=== PATIENT | female | born 1940 | race Caucasian/White ===

== ENCOUNTER 2019-02-21 23:27 | Inpatient (IN) ==
[2019-02-22 01:43] LABS: BASO# 0.01 X1000 (0.0-0.2); BASO% 0.1 % (0.0-0.8); HEMATOCRIT 36.5 % (37.0-47.0); HEMOGLOBIN 12.1 g/dL (12.0-16.0); IMM GRAN# 0.02 X1000 (0.0-0.04); IMM GRAN% 0.2 % (0.0-0.5); LYMPH# 0.71 X1000 (1.2-3.4); MCH 27.8 PG (27-31); MCHC 33.2 g/dL (33-37); MCV 83.7 FL (81-99); MONO# 1.18 X1000 (0.11-0.59); MONO% 11.6 % (1.7-9.3); MPV 10.4 FL (7.4-10.4); NEUT# 8.29 X1000 (1.4-6.5); NEUT% 81.1 % (42.2-75.2); PLT 221 X1000 (130-400); RBC 4.36 XMIL (4.2-5.4); RDW 13.7 % (11.5-14.5); WBC 10.21 X1000 (4.8-10.8)
[2019-02-22 02:14] LABS: AGAP 13; BUN 8 mg/dL (8-22); CALCIUM 8.3 mg/dL (8.8-10.2); CHLORIDE 96 mmol/L (98-107); COSMO 280; CREATININE 0.6 mg/dL (0.5-0.9); ESTIMATED GFR > 60; GLUCOSE 178 mg/dL (70-104); POTASSIUM 3.1 mmol/L (3.5-5.1); SODIUM 139 mmol/L (136-145); TCO2 30 mmol/L (25-35)
[2019-02-22 03:15] LABS: URINE SOURCE CLEAN CATCH
[2019-02-22 03:18] LABS: BILIRUBIN URINE NEGATIVE (NEGATIVE); BLOOD URINE SMALL (NEGATIVE); COLOR STRAW; GLUCOSE URINE 1000 mg/dL (NEGATIVE); KETONE URINE 20 mg/dL (NEGATIVE); LEUKOCYTES URINE SMALL (NEGATIVE); NITRITE URINE NEGATIVE (NEGATIVE); PH URINE 7.5; PROTEIN URINE 100 mg/dL (NEGATIVE); SP GRAVITY URINE < 1.001; TURBIDITY URINE HAZY (CLEAR); UR EPITHELIAL CELLS <10 /HPF (<10); URINE BACTERIA NEGATIVE /HPF; URINE RBC <10 /HPF (<10); URINE WBC TNTC /HPF (<10); UROBILINOGEN URINE NORMAL (NORMAL)
[2019-02-22] MEDS ORDERED: ROCEPHIN 1 GM in NS 50 ML IV ONE (03:25)
--- NOTE | 2019-02-22 04:12 | PROVIDER DOCUMENTATION ---
This chart was entered by Matilda Calix Scribe, acting as scribe for Fina Wood MD. HPI-Syncope/Dizziness - General Chief Complaint: Syncope Stated Complaint: ams, syncope Time Seen by Provider: 02/22/19 00:05 Source: patient, family Allergies/Adverse Reactions: Patient Allergies Allergy/AdvReac Type Severity Reaction Status Date / Time No Known Allergies Allergy Verified 02/22/19 00:49 Home Medications: Home Medication List Medication Instructions Recorded Confirmed Last Taken Type Insulin Novolog 70/30 [Novolog Mix 15 units SQ QHS 11/28/18 01/23/19 11/27/18 History 70/30] Insulin Novolog 70/30 [Novolog Mix 37 units SQ QAM 11/28/18 01/23/19 11/27/18 History 70/30] ATORVAstatin [Lipitor] 1 tab PO QHS 01/23/19 01/23/19 Unknown History Donepezil [Aricept] 1 tab PO QAM 01/23/19 01/23/19 Unknown History Sulfamethoxazole/Trimethoprim 1 ea PO BID #10 tab 01/23/19 Unknown Rx [Bactrim Ds Tablet] - History of Present Illness-Syncope/Dizzy Nature of Presenting Problem: 78 yof presents w/family at bedside w/cc syncope. family found pt slumped over on bathroom toilet. pt states she was weak and couldn't get up and felt dizzy. family states pt was "out of it" but "getting better" in er. pt denies any pain in er. no chest pain, headache, or recent illness Onset/Duration: reports: just prior to arrival Timing: reports: improving Position/Activity at time of episode: reports: sitting Symptoms prior to episode: reports: other (weak) Recently Seen Here or By Another Healthcare Provider: No Review of Systems - Adult - REVIEW OF SYSTEMS - ADULT Constitutional: reports: see HPI, other (weakness). denies: chills, fever, fatique Eyes: reports: no symptoms reported Ears, Nose, Mouth & Throat: reports: no symptoms reported Cardiovascular: reports: no symptoms reported. denies: chest pain, poor circulation, PND Respiratory: reports: no symptoms reported. denies: hemoptysis, shortness of breath, wheezing Gastrointestinal: reports: no symptoms reported. denies: abdominal pain, diarrhea, nausea, vomiting Genitourinary: reports: no symptoms reported Musculoskeletal: reports: no symptoms reported. denies: frequent leg cramps, joint pain, joint swelling Integumentary: reports: no symptoms reported Neurological: reports: see HPI, syncope. denies: dizziness/vertigo, headache/migraines, loss of balance, numbness, paresthesia, seizure Psychiatric: reports: no symptoms reported Endocrine: reports: no symptoms reported Hematologic/Lymphatic: reports: no symptoms reported Allergic/Immunologic: reports: no symptoms reported All Other Systems: Reviewed and Negative Past History - Adult - PAST MEDICAL HISTORY-ADULT Review of Records: reports: Old Records Reviewed, Nursing Assessment Review, Medications Reviewed, Social history reviewed & non-contributory. Major Childhood Illnesses: reports: denies history Cardiovascular: reports: HTN Respiratory: reports: denies history Gastrointestinal: reports: denies history Obstetrical/Gynecological: reports: denies history Genitourinary: reports: denies history Musculoskeletal: reports: denies history Neurological: reports: denies history Endocrine/Immune: reports: Diabetes Other Conditions: reports: denies history - PRIOR SURGERIES/PROCEDURES Surgical/Procedure History: reports: none - IMMUNIZATION STATUS Childhood Immunizations: See Nurse Assessment Flu Vaccine: See Nurse Assessment - FAMILY HISTORY Family History: reviewed, not pertinent - SOCIAL HISTORY Smoking: non-smoker Substance Use: none/never Physical Exam-General - PHYSICAL EXAM-ADULT Initial Vital Signs Reviewed: Yes - CONSTITUTIONAL General Appearance: appears well, alert, no apparent distress - EYES Eyes: PERRL/EOMI, pink conjunctivae - HEAD, EARS, NOSE, MOUTH & THROAT HENMT: normocephalic/atraumatic, moist mucous membranes, normal ENT inspection - NECK Neck: non-tender, full range of motion, supple, normal inspection - RESPIRATORY Respiratory: chest non-tender, lungs clear, normal breath sounds - CARDIOVASCULAR Cardiovascular: normal peripheral pulses, regular rate, rhythm - GASTROINTESTINAL (ABDOMEN) Abdominal Exam: normal bowel sounds, non tender, soft - LYMPHATIC Lymphatic: no adenopathy - MUSCULOSKELETAL Back Exam: normal inspection, no CVA tenderness, no vertebral tenderness Extremity: normal range of motion, non-tender, normal inspection - SKIN Integumentary: normal color, normal turgor, warm/dry - NEUROLOGIC Neurologic: grossly normal, no motor/sensory deficits - PSYCHIATRIC Psych/Mental Status: normal mood/affect, normal thought content, normal thought process, oriented x 3 Progress - PLAN OF CARE/RESULTS Progress/Plan/Lab Results: Vital Signs - 8 hr 02/21/19 23:54 Temperature 98.6 F Pulse Rate 96 H Respiratory Rate 20 Blood Pressure 222/122 O2 Sat by Pulse Oximetry 96 Laboratory Results - last 24 hr 02/22/19 02/22/19 02/22/19 01:07 01:07 01:07 WBC 10.21 RBC 4.36 Hgb 12.1 Hct 36.5 L MCV 83.7 MCH 27.8 MCHC 33.2 RDW Std Deviation 13.7 Plt Count 221 MPV 10.4 Immature Gran % (Auto) 0.2 Neut % (Auto) 81.1 H Lymph % (Auto) 7.0 L Howard % (Auto) 11.6 H Eos % (Auto) 0.0 Baso % (Auto) 0.1 Immature Gran # (Auto) 0.02 Neut # (Auto) 8.29 H Lymph # (Auto) 0.71 L Howard # (Auto) 1.18 H Eos # (Auto) 0.00 Baso # (Auto) 0.01 Sodium 139 Potassium 3.1 L Chloride 96 L Carbon Dioxide 30 Anion Gap 13 BUN 8 Creatinine 0.6 Estimated GFR/1.73 m2 > 60 BUN/Creatinine Ratio 13 Glucose 178 H Calculated Osmolality 280 Calcium 8.3 L Troponin T < 0.010 Urine Source Urine Color Urine Turbidity Urine pH Ur Specific Metz Urine Protein Ur Glucose (Stick) Ur Ketones (Stick) Urine Blood Urine Nitrite Urine Bilirubin Urobilinogen Dipstick Urine Leukocytes Urine WBC (Auto) Urine RBC (Auto) U Epithel Cells (Auto) Urine Bacteria (Auto) 02/22/19 03:04 WBC RBC Hgb Hct MCV MCH MCHC RDW Std Deviation Plt Count MPV Immature Gran % (Auto) Neut % (Auto) Lymph % (Auto) Howard % (Auto) Eos % (Auto) Baso % (Auto) Immature Gran # (Auto) Neut # (Auto) Lymph # (Auto) Howard # (Auto) Eos # (Auto) Baso # (Auto) Sodium Potassium Chloride Carbon Dioxide Anion Gap BUN Creatinine Estimated GFR/1.73 m2 BUN/Creatinine Ratio Glucose Calculated Osmolality Calcium Troponin T Urine Source CLEAN CATCH Urine Color STRAW Urine Turbidity HAZY Urine pH 7.5 Ur Specific Metz < 1.001 Urine Protein 100 A Ur Glucose (Stick) 1000 A Ur Ketones (Stick) 20 A Urine Blood SMALL A Urine Nitrite NEGATIVE Urine Bilirubin NEGATIVE Urobilinogen Dipstick NORMAL Urine Leukocytes SMALL A Urine WBC (Auto) TNTC A Urine RBC (Auto) <10 U Epithel Cells (Auto) <10 Urine Bacteria (Auto) NEGATIVE Orders Category Date Time Status Nursing- Obtain EKG ONCE Care 02/22/19 00:11 Active CHEST-1 VIEW [RAD] Stat Exams 02/22/19 00:[address] HEAD W/O CONTRAST [CT] Stat Exams 02/22/19 00:11 Taken BASIC METABOLIC PANEL [CHEM] Stat Lab 02/22/19 01:07 Completed CBC WITH ELECTRONIC DIFF [HEME] Stat Lab 02/22/19 01:07 Completed TROPONIN T Stat Lab 02/22/19 01:07 Completed UA Reflex [URINALYSIS W/POSS RFLX CULT] [URINALYSIS] Lab 02/22/19 03:04 Completed Stat EKG [EKG] Stat Ther 02/22/19 00:11 Ordered syncope will further evaluate for causes including but not limited to arrythmia, acs, cva, tia, electrolyte imbalance, dehydration, uti pna, other infectious process Result Diagrams: 02/22/19 01:07 02/22/19 01:07 - REASSESSMENT Reassessment #1 Status: improving (UTI, labs and studies otherwise unremarkable. unclear cause of syncope. Treated wtih ceftriaxone and will admit for further evaluation and treatment. Discussed case wtih Dr. Garcia, Hospitalist, who will see and admit pt.) - EKG 1 Time of EKG reading by physician:: 01:40 EKG Read and Signed by:: Fina Wood EKG Interpretation (*Must complete 3 of following elements*): Abnormal Rate: 96 Rhythm: Sinus rhythm w/premature supraventricular complexes [place]: normal CO Interval: normal ST Wave: non-specific ST changes (nonspecific st and t wave abnormality) - XRAY 1 XRAY Study: Chest Impression: Normal - CT/MRI 1 CT Study: Head (Impression: No acute intracranial hemorrhage or process. 2. Age related cerebral volume loss 3. Bilateral white matter disease, likely ischemic microvascular in nature.) Impression: Normal Departure - Departure Date of Disposition Decision: 02/22/19 Time of Disposition Decision: 03:26 DIAGNOSIS: Syncope Qualifiers: Syncope type: unspecified Qualified Code(s): R55 - Syncope and collapse UTI (urinary tract infection) Qualifiers: Urinary tract infection type: site unspecified Hematuria presence: with hematuria Qualified Code(s): N39.0 - Urinary tract infection, site not specified; R31.9 - Hematuria, unspecified Disposition: ADMITTED INPATIENT 09 Certified Medical Emergency: Emergent Condition: Good Referrals and Follow-Ups: Prieto Rizzo MD [Primary Care Provider] - - Critical Care Note This patient required my direct & personal management of CC.: No Attestation - Physician/ GEOVANI Attestation Patient care was provided by Advanced Practice Provider:: No The physician spent face to face time with patient:: Yes Advanced Practice Provider documentation review:: Supervising physician onsite and consulted in the evaluation and care of this patient. The physician did have a face to face encounter with the patient. This chart was documented by the indicated scribe, (Matilda Calix Scribe) and accurately reflects the services I performed and decisions made by me, Fina Wood MD, as attested by the provider's signature.
[2019-02-22] MEDS ORDERED: KLOR-CON PO ONE (05:03)
[2019-02-22 05:16] LABS: INR 0.88; PROTIME 12.7 Seconds (11.0-16.0)
[2019-02-22 05:17] LABS: PTT 32.1 Seconds (22.3-41.8)
--- NOTE | 2019-02-22 05:35 | Diag Imaging Result Doc PS360 ---
EXAM: CHEST-1 VIEW HISTORY: syncope TECHNIQUE: Chest single view COMPARISON: None. FINDINGS: The lungs are well expanded. The heart is not enlarged. The vessels are not distended. There are no infiltrates. No effusion identified. IMPRESSION: Negative exam. Electronically signed by Eleno Kee 02/22/2019 5:33 AM
[2019-02-22] MEDS ORDERED: MAGNESIUM SULFATE 1 GM/D5W 1 GM/100 ML IVPB IV ONE (05:50)
[2019-02-22] MEDS ORDERED: ASPIRIN EC PO ONE (05:56)
[2019-02-22] MEDS ORDERED: ZOFRAN IV PRN (06:22)
[2019-02-22] MEDS ORDERED: TYLENOL PO PRN (06:22)
--- NOTE | 2019-02-22 06:23 | HISTORY AND PHYSICAL ---
ADDENDUM: Admitted after passing out while defecating. Denies any constipation or hard stools or straining. When she came to she was on the floor, found by her . Denies any antecedent cardiorespiratory symptoms prior to or since her passing out. She denies any focal neurological symptoms. Her blood pressure was noticeably elevated in the 170 to 200 range systolic. It has started drifting down from 200 to 175. Her lab work was grossly unremarkable other than a potassium of 3.1 and [id number]-count WBCs suggestive of a UTI. She, however, denies any symptoms from that standpoint. She does have positive glycosuria in her urine. Otherwise her exam shows masklike facies. Positive Myerson sign. However, she has no cogwheel rigidity or hypertonicity of her extremities. No tremor visualized. No pronator drift. There appears to be some slight subtle weakness on the left side. She cannot say if this is new or old. Other than that, the rest of her exam is essentially benign. ASSESSMENT: My assessment at this time is that the patient did have a syncopal spell. However, events leading up to or since the spell cannot be ascertained because the patient is a very poor historian and she does have some degree of dementia. She is oriented only to person, herself and place, but not to time. It is also possible she may have had a stroke. The patient, in fact, has a markedly elevated blood pressure and subtle left-sided weakness. MRI will be ordered to rule this out. Other additional stroke workup including echo and carotid Doppler studies will be done. For now, we will give her an aspirin, consult Neurology, and be very conservative with blood pressure management, i.e., permissive hypertension in the short term. She will be on a program services assistant to make sure she did not have any dysrhythmia. There is no evidence of intravascular volume depletion or bleeding in this patient. Electrolytes have been repleted. cc: Bradley Garcia MD
--- NOTE | 2019-02-22 07:03 | EKG Report ---
Test Performed on : 02/22/2019 01:38:43 AM Test Reason : syncope Blood Pressure : / mmHG Vent. Rate : 096 BPM Atrial Rate : 096 BPM P-R Int : 194 ms QRS Dur : 082 ms QT Int : 362 ms P-R-T Axes : 079 077 022 degrees QTc Int : 457 ms Sinus rhythm. with premature supraventricular complexes. Nonspecific ST and T wave abnormality Abnormal ECG No previous ECGs available Unconfirmed Result
--- NOTE | 2019-02-22 07:39 | Diag Imaging Result Doc PS360 ---
CT HEAD W/O CONTRAST - 02/22/2019 INDICATION: syncope COMPARISON: 01/27/2019 FINDINGS: There is stable advanced cerebral atrophy and advanced cerebral white matter chronic microvascular disease. No intracranial mass or hemorrhage. The skull is intact. The sinuses, mastoids, and middle ears are clear. IMPRESSION: No acute process. This exam was performed using automated exposure control, adjustment of mA or kV according to patient size, and/or use of iterative reconstruction technique Electronically signed by Ted Villar 02/22/2019 7:37 AM
[2019-02-22] MEDS ORDERED: ARICEPT PO SCH ×2 (09:00→21:00)
--- NOTE | 2019-02-22 09:30 | HISTORY AND PHYSICAL ---
PRIMARY CARE PROVIDER: Prieto Rizzo MD. DATE AND TIME: 02/22/2019 at 0430. CHIEF COMPLAINT: Syncope. HISTORY OF PRESENT ILLNESS: Ms. Thomas is a 78-year-old, female who was brought in [facility] after she was found slumped over on the bathroom toilet. According to the patient, she does live with her . He is the one that found her passed out on the toilet. The patient states that she was sitting on the toilet trying to have a bowel movement and was reportedly bearing down. The patient states that prior to her using the restroom, she felt fine. She had not reported any dizziness, syncope, chest pain, shortness of breath or not feeling well. The patient states that she felt weak and dizzy and could not get up. From what I understand just prior to this, when her found her slumped over on the toilet, he did lower her down to the floor. At this time, she denies any pain. She denies any headache, chest pain, shortness of breath, abdominal pain, nausea, vomiting or dysuria. Laboratory results in the ER revealed she did have some mild hypokalemia with potassium 3.1, some mild hypomagnesemia with a magnesium level of 1.3. She does have what appears to be a urinary tract infection with leukocytes and too numerous to count white blood cells noted, though the patient is not reporting any urinary symptoms. A CT of the head did not show any acute intracranial abnormality. This was per Radiology. Chest x-ray was negative for any acute abnormalities as well. The patient's blood pressure was elevated upon arrival. Initial vital signs were temperature 98.6 degrees, heart rate 96, respirations 20, blood pressure is 222/122. Oxygen saturation 96% on room air. We did confirm this manually, which did show blood pressure 175/89. Upon our assessment, the patient did have somewhat of a flat affect, though she is alert and oriented to person and place, though not time. She does appear to have some degree of underlying dementia. She does take Aricept, though there is no family at bedside to assist us with what her baseline mentation is. She did appear to have some subtle left- sided weakness in her left hand and left lower extremity. The patient denies any numbness or tingling. She is able to move all extremities. There is no facial droop noted. She did not have arm drift noted. At this time, she will be admitted for further treatment and evaluation of her syncope. REVIEW OF SYSTEMS: A 14-point review of systems was conducted with the patient and all were negative except for pertinent positives mentioned in above history of present illness. PAST MEDICAL HISTORY: 1. Hypertension. 2. Hyperlipidemia. 3. Dementia. 4. Diabetes mellitus. PAST SURGICAL HISTORY: The patient has no known previous surgeries. SOCIAL HISTORY: According to the patient she has no known past or present history of tobacco, alcohol or illicit drug use. She reports that she does live at home with her . The patient states that she does not use the assistance devices of a cane or walker. FAMILY HISTORY: The patient reports no known family medical history. ALLERGIES: Patient has no known allergies. HOME MEDICATIONS: 1. Atorvastatin 40 mg p.o. at bedtime. 2. Aricept 5 mg p.o. at bedtime. 3. NovoLog 70/30, 37 units subcutaneous q.a.m. NovoLog 70/30, 15 units subcutaneous at bedtime. 4. Ramipril 5 mg p.o. daily. DIAGNOSTIC DATA/LABORATORY RESULTS: White blood cell count is 10,210, hemoglobin 12.1, hematocrit is 36.5, platelet count 221,000. PT 12.7, INR 0.88, PTT is 32.1. Sodium 139, potassium 3.1, chloride 96, serum bicarb is 30, BUN 8, creatinine 0.6 with a GFR greater than 60. Glucose 178, calcium 8.3. Magnesium 1.3, troponin less than 0.01. Urinalysis was obtained via clean catch, was positive for protein, glucose, ketones, blood, small amount of leukocytes, too numerous to count white blood cells. It was negative for bacteria. EKG shows sinus rhythm with premature supraventricular complexes at a rate of 96 with a QTc of 457. CT of the head did not show any acute intracranial abnormalities. This is per Radiology. Chest x- ray did not show any acute abnormalities as per Radiology. PHYSICAL EXAMINATION: VITAL SIGNS: Temperature 98.6 degrees, heart rate 96, respirations 20, blood pressure manually was 175/89, oxygen saturation is 94 to 95 percent on room air. GENERAL: Ms. Thomas is a 78-year-old, female. She was resting in the ER stretcher. She was in no acute distress. She was awake, alert and oriented to person, place, and not time. HEENT: Head is atraumatic, normocephalic. Pupils are equal and reactive to light, were 3 mm bilaterally and brisk. Oral mucous moist and clear. NECK: Supple. Trachea midline. No carotid bruits noted upon auscultation bilaterally. CARDIOVASCULAR: Patient has S1 S2. No murmurs or gallops are appreciated with a regular rate and rhythm. PULMONARY: Patient has symmetrical chest expansion bilaterally. Lungs sound clear to auscultation in bilateral full quinones. ABDOMEN: Soft. Nontender. Nondistended. Bowel sounds are present. All 4 quadrants were normoactive. EXTREMITIES: No cyanosis, clubbing or edema noted. Pulse, motor, and sensitivity were intact in all extremities. Radial pulses and pedal pulses were 2+ bilaterally. INTEGUMENTARY: The patient's skin is pink, warm, dry. NEUROLOGIC: Patient is awake, alert and oriented to person and place and not time. She was able to answer some simple questions and follow some simple commands, though she is somewhat a poor historian, She does appear to have a degree of underlying dementia. She did have a flat affect noted. She has no facial droop noted. She does appear to have some generalized weakness as well as she does seem a little more weak on her left side and upper and lower extremities. ASSESSMENT AND PLAN: 1. Syncope. This could be secondary to a vagal response. The patient was reportedly having a bowel movement at the time of her syncopal episode, though given the patient's other symptoms of being slightly confused, as well as her left-sided weakness and elevated blood pressure, we are concerned that she may have had a possible stroke as well. We will continue with the MRI in the morning. We will perform a carotid ultrasound and echocardiogram. We have given her an aspirin. We will continue with daily aspirin therapy. We will continue her atorvastatin. We will do frequent vital signs. She will be on continuous cardiac telemetry. We have placed a consult with Neurology, and will await their evaluation and further recommendations for management. 2. Dementia. We will continue her Aricept. 3. Hypertension. Given the patient's possibility of CVA, we will allow for some permissive hypertension. We will hold her ramipril at this time. We will treat her blood pressure. If it is greater than 180 systolically, we will continue to monitor this closely. 4. Hyperlipidemia. We will continue her atorvastatin. DVT prophylaxis is provided with SCDs. 5. Diabetes Mellitus. We will place her on a sliding scale lispro insulin. We will do pattern FSBS. 6. Urinary Tract Infection. We have place her on rocephin 1 gram IV Q24H. A urine culture has been place. Patient has been placed on the medical floor with telemetry. She will be on diet, though we are going to perform a swallowing screen prior to beginning this. She did have some minor electrolyte abnormalities, a slightly low magnesium and potassium. These have been replaced. We will continue to follow this closely. Further orders and recommendations pending hospital course, diagnostic studies and physician evaluation. Dictated by PAOLA Hawkins for Bradley Garcia MD cc: MD Prieto Madden MD MTDD
--- NOTE | 2019-02-22 10:28 | Diag Imaging Result Doc PS360 ---
MRI BRAIN W/WO CONTRAST - 02/22/2019 INDICATION: Syncope COMPARISON: 02/22/2019 FINDINGS: There is no area of restricted diffusion. There is moderate diffuse cerebral atrophy. There is advanced white matter chronic microvascular disease of the cerebral hemispheres and also to a lesser extent in the brian. No intracranial mass or hemorrhage. No abnormal contrast enhancement. Midline structures are unremarkable. IMPRESSION: No acute process. Electronically signed by Ted Villar 02/22/2019 10:26 AM
[2019-02-22] MEDS: HUMALOG SUBQ SCH ×4 (12:01→21:44)
--- NOTE | 2019-02-22 13:56 | CONSULTATION ---
DATE OF CONSULTATION: 02/22/2019 HISTORY: Ms. Thomas is 78 years old and she was reportedly found unconscious or poorly responsive while seated on the commode at home. She was found by her . There is reported baseline dementia and I am not certain about the accuracy of Ms Thomas's history. is not present for firsthand report to me. I have reviewed the admission notes. Ms Thomas reports she remembers being seated on the commode and straining to have a bowel movement. She remembers feeling odd and dizzy and believes that there was a sense that she was "about to pass out." She does not recall chest pain, headache, focal neurologic deficit. She believes she remembers checking on her. She reports she has felt well since then. She believes that she has not made any recent medicine changes and that she does not miss medicine doses. She reports medicines are supervised by her . Workup here includes brain MRI done with and without contrast reported unremarkable. She has been afebrile. Heart rate has ranged 90s on presentation down to 80s now. Initial systolic blood pressures were 220s, down to 170s-190s now. HOME MEDICATIONS: Donepezil 5 mg daily. Ms. Thomas was not able to tell me how long she has been taking that or whether or not she has had a higher dose or other medicines for memory. PHYSICAL EXAMINATION: Ms. Thomas is awake, alert, attentive, cheerful, appropriate. Speech is not dysarthric. Language function is intact. Remote memory is fair. Recent memory is poor tested grossly. She was not able to name the hospital or the month. She did identify the correct year. She did not name the President. I did not test her cognitive function more thoroughly. Visual quinones are full tested grossly by confrontational finger counting. Extraocular movements are full. Facial motility is little bit diminished bilaterally, but symmetric. Tongue is midline. I observed her chewing and swallowing without difficulty. She has good power in the right arm and in both legs. Tone is symmetric. She guarded the left arm at the wrist and a little bit at the shoulder and she did not demonstrate full effort with motor testing in the left arm. She did well on [id number] testing bilaterally. She reports equal pinprick and light touch appreciation over the limbs. Proprioception is good at the great toe MTP joint bilaterally. I did not test her gait. IMPRESSION: 1. Episode of poor responsiveness or possibly brief unconsciousness. By report, this was associated with straining to stool. This sounds like syncope with vasovagal features more than seizure or other primary SENIOR LITIGATION PARALEGAL event. She did present with significant blood pressure elevation. Negative imaging and nonfocal exam are reassuring. I do not think we need to do anything urgently now. We might consider electroencephalogram later. 2. She has some tenderness in the left arm and guards that arm. I wonder if she might have had injury when she was helped or fell off the commode. I do not think this is a neurologic deficit. On follow-up exam, if this seems to be neurologic, we can consider further workup. 3. Reported baseline dementia. If she has not had a trial with higher dose donepezil, that can be considered electively, not urgent. Thanks for asking Neurology to see Ms. Thomas. cc: MD Prieto Shaw III, MD MTDD
--- NOTE | 2019-02-22 16:09 | ECHO REPORT ---
ORDER DATE: 02/22/2019 INTERPRETING PHYSICIAN: Dr. Marion CLINICAL INDICATIONS: Syncope. M-MODE MEASUREMENTS: Left ventricle end diastole: 3.9 cm. Left ventricle end systole: 2.5 cm. Posterior wall: 0.9 cm. Interventricular septum: 0.9 cm. Left atrium: 3.2 cm. Aortic root: 3.2 cm. SUMMARY OF 2-DIMENSIONAL IMAGIN. Left ventricular function is normal, ejection fraction of 60% to 65%. 2. The right ventricle appears to be normal. 3. The atria appeared to be normal. 4. The aortic valve is normal. Color flow mapping unremarkable. 5. The mitral valve is normal. Color flow mapping unremarkable. 6. The tricuspid valve looks grossly unremarkable. 7. Pulmonary pressure appears to be within normal range. 8. The tissue Doppler of septal and lateral mitral annulus averages 10 cm. 9. There is no diastolic dysfunction. 10.Mitral inflow is normal. 11.The pulmonic and tricuspid valves appear to be grossly unremarkable. 12.Pulmonary pressure estimated at 31 mmHg. 13.No pericardial effusion, no mass, and no thrombus. Clinical correlation is recommended. cc: MD Prieto Sharma MD
[2019-02-22] MEDS: LIPITOR PO SCH (20:31)
[2019-02-23] MEDS: ROCEPHIN 1 GM in NS 50 ML IV SCH (04:07)
[2019-02-23 06:53] LABS: BASO# 0.01 X1000 (0.0-0.2); BASO% 0.1 % (0.0-0.8); EOS# 0.04 X1000 (0.0-0.7); EOS% 0.5 % (0.0-10.0); HEMATOCRIT 33.7 % (37.0-47.0); LYMPH# 1.24 X1000 (1.2-3.4); LYMPH% 16.1 % (20.5-51.1); MCH 27.6 PG (27-31); MCHC 32.6 g/dL (33-37); MCV 84.7 FL (81-99); MONO# 1.24 X1000 (0.11-0.59); MONO% 16.1 % (1.7-9.3); MPV 10.6 FL (7.4-10.4); NEUT# 5.16 X1000 (1.4-6.5); NEUT% 67.2 % (42.2-75.2); PLT 210 X1000 (130-400); RBC 3.98 XMIL (4.2-5.4); RDW 13.9 % (11.5-14.5); WBC 7.69 X1000 (4.8-10.8)
[2019-02-23] MEDS: HUMALOG SUBQ SCH ×4 (07:24→22:12)
[2019-02-23 07:25] LABS: AGAP 12; BUN 9 mg/dL (8-22); CHLORIDE 94 mmol/L (98-107); COSMO 281; CREATININE 0.6 mg/dL (0.5-0.9); ESTIMATED GFR > 60; GLUCOSE 284 mg/dL (70-104); POTASSIUM 3.3 mmol/L (3.5-5.1); SODIUM 136 mmol/L (136-145); TCO2 30 mmol/L (25-35)
[2019-02-23] MEDS: ASPIRIN EC PO SCH (09:20)
--- NOTE | 2019-02-23 09:29 | PROGRESS NOTE ---
DATE: 02/23/2019 LOCATION: Room 423B. SUBJECTIVE: Ms. Thomas's is at the bedside this morning. His description of recent episode is consistent with syncopal episode while on the toilet. Features do not suggest seizure, stroke, or other primary INTERACTIVE MEDIA MARKETING SPECIALIST event. reports her dementia has been longstanding. reports donepezil dose 5 mg initially and 10 mg currently, and she is tolerating that. We briefly discussed potential cholinergic GI side effects, but that does not seem to have been playing a role with her recent episode. In fact, she was having to strain to pass a stool when she passed out. She still has some soreness in the left shoulder, and more prominent soreness at the left wrist. She guards the left arm, and does not use it because of discomfort. I do not have any new thought or new suggestion from Neurology standpoint. If she has more episodes, we might consider EEG. I would continue donepezil 10 mg daily as tolerated. She may need some attention to the left arm. Thank you for asking Neurology to see Ms. Thomas. cc: MD Prieto Shaw III, MD MTDD
[2019-02-23] MEDS: ALTACE PO SCH ×2 (09:34→22:10)
[2019-02-23] MEDS ORDERED: KLOR-CON PO ONE (13:41)
--- NOTE | 2019-02-23 14:19 | Diag Imaging Result Doc PS360 ---
WRIST 2 VIEWS-LEFT - 02/23/2019 INDICATION: lt wrist and shoulder pain TECHNIQUE: COMPARISON: None FINDINGS: There is moderate osteopenia. No fracture or dislocation. There is advanced peripheral arterial disease of the arteries of the wrist and hand. There is mild osteoarthritis at the first carpometacarpal joint. IMPRESSION: Chronic changes. Electronically signed by Ted Villar 02/23/2019 2:17 PM
--- NOTE | 2019-02-23 14:20 | Diag Imaging Result Doc PS360 ---
EXAM: SHOULDER-LEFT 02/23/2019 HISTORY: lt shoulder pain TECHNIQUE: Left shoulder two views COMMENT: There are degenerative changes in the acromioclavicular joint. There is no evidence of acute fracture or dislocation. IMPRESSION: Osteoarthritis. Electronically signed by Will Chacko 02/23/2019 2:17 PM
--- NOTE | 2019-02-23 19:27 | PROGRESS NOTE ---
DATE: 02/23/2019 SUBJECTIVE: Patient was alert, sitting up in bed, eating her lunch when I saw her. She has done better overall. Mentation is back to baseline, according to her . He gives a better history that she did not completely pass out, but he caught her before she fell onto the floor off the toilet. Dr. Newell has been seeing her and his workup is reviewed. The patient does have some tenderness and swelling at the left wrist and tenderness at the left shoulder, without known trauma to the area. Positive frequency of urination. OBJECTIVE: Vital Signs: Afebrile. Pulse 96, blood pressure 170/70, O2 sat on 2 L 100%. Cardiovascular: RRR. Lungs: CTA. Extremities: No calf tenderness, cords or edema. Mild tenderness at the left shoulder with slight decreased ROM above the head. Moderate tenderness of left distal forearm/wrist area. No palpable deformity, but mild swelling noted. Neurologic: Cranial nerves 2-12 are intact. She remains at her baseline with some very mild baseline confusion consistent with her Alzheimer dementia, which has been diagnosed outpatient prior to this hospitalization. LABORATORY: White count 7.69, hemoglobin 11, platelets 210,000. Sodium 136, potassium 3.3, chloride 94, CO2 30, BUN 9, creatinine 0.6. Blood sugars in the 200s to low 300s. Calcium 8.01. One of two blood cultures has come back positive showing coagulase-negative Staph consistent with a contaminant. Urine culture is growing out gram-positive cocci. Telemetry strips show sinus rhythm with 1st degree block with occasional PVCs. No significant dysrhythmias. ASSESSMENT: 1. Syncope with negative carotid Doppler studies. Echocardiogram is unremarkable. MRI of the brain done yesterday, no acute process. Rule out vasovagal syncope. 2. Hypokalemia, mild. 3. Left wrist and shoulder pain. 4. Alzheimer dementia with patient on Aricept. 5. Hypertension. 6. Hyperlipidemia. 7. IDDM. PLAN: We have increased her Altace from 5 mg daily to 5 mg b.i.d. She is on SSI currently and will likely reinstitute NovoLog 70/30 mix in the morning. Resume her aspirin therapy. Increase the Aricept back to 10 mg daily. Continue Lipitor 40 mg nightly. Right now we have her on Rocephin and will continue that IV and follow the urine culture as she is largely asymptomatic from this. This may be a contaminant. We will repeat cath UA with urine culture and will also check uric acid level and repeat BMP and CBC in the morning. We will ask Physical Therapy to see the patient and ambulate her and hope to discharge her tomorrow or the next day if she continues to improve. cc: Prieto Rizzo MD
[2019-02-23] MEDS: ARICEPT PO SCH (22:12)
[2019-02-23] MEDS: LIPITOR PO SCH (22:12)
[2019-02-24] MEDS: ROCEPHIN 1 GM in NS 50 ML IV SCH (03:41)
[2019-02-24 06:33] LABS: BASO# 0.01 X1000 (0.0-0.2); BASO% 0.1 % (0.0-0.8); EOS# 0.03 X1000 (0.0-0.7); EOS% 0.4 % (0.0-10.0); HEMATOCRIT 35.6 % (37.0-47.0); HEMOGLOBIN 11.4 g/dL (12.0-16.0); IMM GRAN# 0.02 X1000 (0.0-0.04); IMM GRAN% 0.3 % (0.0-0.5); LYMPH# 1.15 X1000 (1.2-3.4); LYMPH% 15.1 % (20.5-51.1); MCH 27.3 PG (27-31); MCV 85.4 FL (81-99); MONO# 0.98 X1000 (0.11-0.59); MONO% 12.8 % (1.7-9.3); MPV 10.3 FL (7.4-10.4); NEUT# 5.45 X1000 (1.4-6.5); NEUT% 71.3 % (42.2-75.2); PLT 220 X1000 (130-400); RBC 4.17 XMIL (4.2-5.4); RDW 13.6 % (11.5-14.5); WBC 7.64 X1000 (4.8-10.8)
[2019-02-24] MEDS: HUMALOG SUBQ SCH ×4 (06:37→22:33)
[2019-02-24 07:24] LABS: AGAP 13; BUN 14 mg/dL (8-22); CALCIUM 8.4 mg/dL (8.8-10.2); CHLORIDE 91 mmol/L (98-107); COSMO 278; CREATININE 0.7 mg/dL (0.5-0.9); ESTIMATED GFR > 60; GLUCOSE 337 mg/dL (70-104); MAGNESIUM 1.7 mg/dL (1.5-2.7); POTASSIUM 3.7 mmol/L (3.5-5.1); SODIUM 132 mmol/L (136-145); TCO2 28 mmol/L (25-35)
[2019-02-24] MEDS: ASPIRIN PO SCH (08:55)
[2019-02-24] MEDS: ALTACE PO SCH ×2 (08:55→22:32)
[2019-02-24] MEDS: ASPIRIN EC PO SCH (08:55)
[2019-02-24] MEDS: LOVENOX SUBQ SCH (08:55)
--- NOTE | 2019-02-24 12:48 | PROGRESS NOTE ---
DATE: 02/24/2019 SUBJECTIVE: Ms. Thomas reports no episodes of syncope or collapse. She does not report lightheadedness when she sits up or stands. She denies headache. She did not have any specific complaints for me today, but asked about going home OBJECTIVE: She is awake and alert, attentive and appropriate. Speech is not significantly dysarthric. IMPRESSION: My impression is that she had syncope, which was not related to a primary BOTTLE ASSEMBLER event. I do not think we need further Neurologic workup now. We can reconsider EEG later if she has more episodes. I would continue managing dementia as she is doing with donepezil 10 mg daily and keep her followup with her primary clinic. I will be glad to see her as an outpatient if needed. Thanks for asking Neurology to see Ms. Thomas. cc: MD Prieto Shaw III, MD MTDD
[2019-02-24] MEDS: NOVOLOG MIX 70/30 SUBQ SCH ×3 (17:00→22:33)
--- NOTE | 2019-02-24 17:19 | PROGRESS NOTE ---
DATE: 02/24/2019 SUBJECTIVE: The patient seen earlier in the day, was arousable and answers questions appropriately. She remains at her slightly confused demented state has been present for months. She is at her baseline now. She is weak and she has not been getting up. Initially I was going to discharge her with home health care but unfortunately with trial of PT and ambulation she did not do well so her is not able to lift and care for her at home so he desires to have rehab placement. That is being pursued by Electronic Funds Transfer Coordinator. OBJECTIVE: Vital Signs: Afebrile, pulse 108, respirations 18, blood pressure 127/45, O2 saturation room air 96%. CV: RRR. Lungs: CTA. Abdomen: Soft, nontender, nondistended. Extremities: No edema. Neuro: Cranial nerves are intact. No focal deficits. Mild baseline confusion. LABORATORIES: Show white count of 7.6, hemoglobin 11.4, platelets 220,000. Sodium 132, potassium 3.7 after repletion yesterday, chloride 91, CO2 28, BUN 14, creatinine 0.7, blood sugar in the 300s to low 400 range. Blood cultures x2, 1 of the 2 has grown out coagulase negative Staph, which is likely contaminant. The urine culture was a clean-catch specimen and it too is growing out Staph aureus but this is methicillin sensitive. Difficult to tell if is true infection versus contaminant. ASSESSMENT: 1. Syncope with no further episodes. Negative carotid Dopplers, echocardiogram and MRI of the brain. 2. Hypokalemia resolved with repletion orally. 3. Possible methicillin sensitive Staphylococcus aureus urinary tract infection versus contaminant. 4. Alzheimer dementia. 5. Generalized weakness and ataxia. 6. Left wrist and shoulder pain overall improved with negative x-rays. 7. Hypertension. 8. Hyperlipidemia. 9. Insulin-dependent diabetes mellitus. PLAN: Will scrap our plan to go home with home health care and home PT and instead pursue rehab facility. crop or grain farmworker is working on this vigorously. Will reinstitute her home insulin regimen and will treat the UTI with Bactrim DS 1 p.o. b.i.d. and stop the Rocephin. Continue her diabetic diet. We will repeat urinalysis with reflex culture and do catheter specimen to make sure this is clearing or was contaminant in nature. Continue daily aspirin and Lipitor. She has responded to higher dose Altace at 5 mg b.i.d. instead of daily and will continue that for blood pressure control. Continue SSI. Again, resume home dose of insulin as well. cc: Prieto Rizzo MD
[2019-02-24] MEDS: ARICEPT PO SCH (22:32)
[2019-02-24] MEDS: LIPITOR PO SCH (22:33)
[2019-02-24] MEDS: SEPTRA DS PO SCH (22:33)
[2019-02-24] MEDS ORDERED: INSULIN PEN NEEDLES ONE (22:37)
[2019-02-25 02:11] LABS: URINE SOURCE CATH
[2019-02-25 02:14] LABS: BILIRUBIN URINE NEGATIVE (NEGATIVE); BLOOD URINE MODERATE (NEGATIVE); COLOR YELLOW; GLUCOSE URINE >1000 mg/dL (NEGATIVE); KETONE URINE 40 mg/dL (NEGATIVE); LEUKOCYTES URINE MODERATE (NEGATIVE); NITRITE URINE NEGATIVE (NEGATIVE); PROTEIN URINE 200 mg/dL (NEGATIVE); SP GRAVITY URINE 1.022; TURBIDITY URINE CLEAR (CLEAR); UROBILINOGEN URINE NORMAL (NORMAL)
[2019-02-25 02:16] LABS: UR EPITHELIAL CELLS <10 /HPF (<10); URINE BACTERIA NEGATIVE /HPF; URINE RBC <10 /HPF (<10); URINE WBC TNTC /HPF (<10)
[2019-02-25] MEDS: HUMALOG SUBQ SCH ×4 (07:03→22:40)
[2019-02-25] MEDS: ALTACE PO SCH ×2 (09:36→22:38)
[2019-02-25] MEDS: ASPIRIN EC PO SCH (09:36)
[2019-02-25] MEDS: LOVENOX SUBQ SCH (09:36)
[2019-02-25] MEDS: ASPIRIN PO SCH (09:36)
[2019-02-25] MEDS: SEPTRA DS PO SCH ×2 (09:36→22:39)
[2019-02-25] MEDS: NOVOLOG MIX 70/30 SUBQ SCH ×2 (09:37→22:39)
[2019-02-25] MEDS ORDERED: CALMOSEPTINE OINTMENT TOP PRN (10:34)
--- NOTE | 2019-02-25 12:16 | PROGRESS NOTE ---
DATE: 02/25/2019 SUBJECTIVE: The patient is drowsy but arousable. She has no complaints. Denies cough. Denies dysuria. OBJECTIVE: Vital signs: T-max 100.1 degrees axillary yesterday evening, pulse today 83, respirations 16, temperature currently 98.5 degrees, blood pressure 144/50, O2 saturation on room air 98%. Cardiovascular: Regular rate and rhythm with occasional ectopy. Lungs: Clear. Abdomen: Soft, nontender, nondistended. Extremities: No calf tenderness, cords or edema. Left wrist without any swelling, now. There is mild tenderness there. Good range of motion at the left shoulder without particular tenderness. Neurologic: Nonfocal. Patient moves all extremities. LABORATORY DATA: Blood sugars have come down some into the 100 to 200s on her previous home dosage of insulin with SSI in addition. Again, urine culture is done from the catheter specimen done yesterday and is pending. The urinalysis done yesterday showed moderate blood, negative nitrite, 200 protein, glucose greater than 1000, moderate leukocytes, too numerous to count WBCs, negative bacteria. Urine culture done from a clean-catch specimen on admission 02/22/2019 grew out MSSA sensitive to Bactrim, and she had been switched from Rocephin to the Bactrim yesterday. Blood cultures x2 done on admission, 1 of 2 grew out coag-negative staph. This was thought to be contaminant. ASSESSMENT: 1. Syncope, resolved with negative workup. 2. Hypokalemia, resolved with repletion. 3. Methicillin-susceptible Staphylococcus aureus urinary tract infection. 4. Alzheimer dementia. 5. Generalized weakness and ataxia, possibly related to urinary tract infection. 6. Left wrist and shoulder pain, improved. 7. Hypertension. 8. Hyperlipidemia. 9. Insulin-dependent diabetes mellitus. PLAN: We have reinstituted her previous home doses of insulin. She has SSI in addition. Continue physical therapy. Due to her severe weakness, she is needing a rehab bed, so social service coordinator is working on that. We had placed her on the Bactrim DS yesterday which covers the MSSA UTI and will continue that antibiotic orally and will watch her fever and labs for clearing of that infection. Continue her aspirin and Lipitor, and she has responded nicely to double dose Altace at 5 mg b.i.d. and blood pressures have come down. We will continue to monitor and likely discharge to rehab in 48 to 72 hours if a bed becomes available. cc: Prieto Rizzo MD
[2019-02-25] MEDS: ARICEPT PO SCH (22:36)
[2019-02-25] MEDS: LIPITOR PO SCH (22:38)
[2019-02-26] MEDS: HUMALOG SUBQ SCH ×4 (07:57→23:12)
[2019-02-26] MEDS: SEPTRA DS PO SCH ×2 (09:04→23:10)
[2019-02-26] MEDS: ASPIRIN EC PO SCH (09:04)
[2019-02-26] MEDS: ALTACE PO SCH ×2 (09:04→23:10)
[2019-02-26] MEDS: ASPIRIN PO SCH (09:05)
[2019-02-26] MEDS: NOVOLOG MIX 70/30 SUBQ SCH ×2 (09:05→23:10)
[2019-02-26] MEDS: LOVENOX SUBQ SCH (09:05)
--- NOTE | 2019-02-26 13:49 | PROGRESS NOTE ---
DATE: 02/26/2019 SUBJECTIVE: 78 -year-old white female admitted to the hospital on 02/22/2019 basically for syncope spell and interval history was reviewed. REVIEW OF SYSTEMS: None reported. PAST MEDICAL HISTORY: Reviewed. PAST SURGICAL HISTORY: Reviewed. MEDICINES: Reviewed. ALLERGIES: Not known. EXAMINATION: Temperature is 98 degrees, pulse 88, blood pressure 156 x 60, 93% on room air.HEENT: Within normal limits. Neck: Supple. Chest: Bilateral air entry. Heart: Sounds are regular. Abdomen: Belly is soft, nontender. Good bowel sounds. In diapers. Extremities: No peripheral edema cyanosis. Neurological: No obvious neurological deficits. INVESTIGATIONS: 02/24/2019: CBC is normal. SMA 7 is normal. Blood sugar is around 176. Blood cultures, coag-negative Staph aureus, 1 out of 2 urine cultures methicillin sensitive Staph aureus. ASSESSMENT AND PLAN: 1. Syncope is better, questionable vasovagal. 2. Methicillin sensitive Staph aureus urinary tract infection currently on Bactrim 1 tablet p.o. b.i.d. No symptoms, signs of infection noted. 3. Hyperlipidemia on Lipitor 40 daily. 4. Type 2 diabetes on insulin 70/30 15 units in the evening and sliding scale with insulin coverage and 37 units in the morning. 5. Tenia cruris on miconazole cream. 6. Hypertension. Altace 5 mg p.o. b.i.d. 7. Deep venous thrombosis prophylaxis with Lovenox. 8. Obviously the patient is going for rehab placement. Currently stable. Continue present treatment. LEVEL OF DOCUMENTATION: 35 minutes. cc: MD Prieto Olivo MD
[2019-02-26] MEDS ORDERED: MONISTAT-7 VAG CREAM VAG SCH (21:00)
[2019-02-26] MEDS: ARICEPT PO SCH (23:09)
[2019-02-26] MEDS: LIPITOR PO SCH (23:10)
[2019-02-27] MEDS: ALTACE PO SCH (08:12)
[2019-02-27] MEDS: ASPIRIN PO SCH (08:13)
[2019-02-27] MEDS: HUMALOG SUBQ SCH ×2 (08:13→12:04)
[2019-02-27] MEDS: LOVENOX SUBQ SCH (08:13)
[2019-02-27] MEDS: ASPIRIN EC PO SCH (08:13)
[2019-02-27] MEDS: SEPTRA DS PO SCH (08:13)
[2019-02-27] MEDS: NOVOLOG MIX 70/30 SUBQ SCH (08:14)
--- NOTE | 2019-02-27 08:39 | Carotid Study ---
DATE: 02/22/2019 PROCEDURE: Bilateral carotid duplex. REQUESTING PHYSICIAN: DR. Wood. INTERPRETING PHYSICIAN: Dr. Jai Nieves. TECH: [employer]. INDICATIONS: Syncope. OBSERVED DATA RIGHT LEFT Brachial Blood Pressure Carotid Pulse Bruits: Carotid/Sub DIAGRAM OF ULTRASOUND IMAGING R L RIGHT INT EXT INT EXT LEFT Walker (cm/s) Walker (cm/s) Subclavian 161/0 Subclavian 111/0 CCA Proximal 87/12 CCA Proximal 92/9 CCA Distal 65/10 CCA Distal 83/7 Bulb 61/7 Bulb 100/3 ICA Proximal 62/10 ICA Proximal 72/9 ICA Mid 80/17 ICA Mid 71/14 ICA Distal 74/14 ICA Distal 133/27 ECA 134/0 ECA 158/12 Vertebral 52/5 A Vertebral 66/12 A ICA/CCA Ratio 0.92 ICA/CCA Ratio 1.44 % Stenosis 0-39% % Stenosis 40-59% FINDINGS: On the right there is a focal plaque in the carotid bulb. In the left there is a focal plaque in the proximal internal carotid artery that would technically correlate to a 40-59% lesion based off peak systolic velocity. SUMMARY: Moderate stenosis in the left with mild stenosis in the right. cc: MD Prieto Berg MD
[2019-02-27 11:30] VITALS: BP 142/61
--- NOTE | 2019-02-27 12:02 | DISCHARGE SUMMARY ---
ADMISSION DATE: 02/22/2019 DISCHARGE DATE: 02/27/2019 DIAGNOSES: 1. Syncope, thought related to vasovagal syncope, resolved without further episodes. 2. Hypokalemia resolved with repletion. 3. Methicillin sensitive Staph aureus urinary tract infection improving with Bactrim DS treatment. 4. Moderate Alzheimer's dementia. 5. Generalized weakness and ataxia likely exacerbated by recent urinary tract infection. 6. Left wrist and shoulder pain with negative x-rays, much improved on exam clinically. 7. Hypertension. 8. Hyperlipidemia. 9. Insulin-dependent diabetes mellitus. PROCEDURES: 1. Chest x-ray done 02/[address] scan of the head done 02/22 without contrast revealing no acute process. 3. MRI brain done 02/22 with and without contrast. No acute process. 4. Echocardiogram done 02/22 revealing the EF 60 to 65 percent essentially normal. 5. Left wrist x-ray done 02/23 chronic changes with some moderate osteopenia. Mild OA at the 1st carpometacarpal joint. Otherwise, no fracture. 6. Left shoulder x-ray done 02/23 revealing some degenerative changes of the AC joint. No fracture or dislocation. CONSULTANTS: Dr. Opal Newell, Neurology. REASON FOR ADMISSION AND HOSPITAL COURSE: The patient is a 78-year-old white female followed in my medical practice who came in having had a syncopal episode while on the toilet. Her caught her, and she did not fall or hurt herself. She has moderate Alzheimer's dementia, and has been started on some Aricept recently outpatient, and was transitioning over from 5 to 10 mg daily. The patient was admitted, and had chest x-ray, CT of the head, brain MRI, and echocardiogram with results as above. She was noted to have minor swelling at the left wrist and some discomfort at the left shoulder. The latter was x-rayed and showed some mild OA changes. Otherwise, there was no abnormality particularly at the wrist other than mild OA as well. The patient clinically did well. She did have a urine culture grow out methicillin sensitive Staph aureus, and was placed on Bactrim DS and did well in that regard. She did run a low-grade fever about midway through the hospitalization thought related to the UTI, and that defervesced with treatment. She was weak generally and mildly ataxic with physical therapist. Initially, we had planned on sending her home with home health care, but that was aborted. Plans were made to go to rehab, and a rehab bed was obtained. She will be discharged there. DISCHARGE EXAMINATION: Lungs: Clear on exam. CV: RRR without murmur. Psychiatric: The patient is at her baseline mentation with moderate Alzheimer's dementia. Neurologic: She moves all extremities well. Abdomen: Soft, active bowel sounds. Nondistended. Extremities: No calf tenderness, cords or edema. She had a bowel movement last on 02/25. Physical Therapy had been working with the patient. Blood cultures 1 of 2 grew out coag-negative staph that was thought to be a contaminant. DISCHARGE MEDICATIONS: 1. Tylenol p.r.n. 2. Aspirin 81 mg daily. 3. Lipitor 40 mg p.o. at bedtime. 4. Aricept 10 mg p.o. daily. 5. NovoLog 70/30 insulin 37 units subcutaneous every morning 15 units subcutaneous every evening. 6. Calmoseptine ointment topically p.r.n. any skin redness. 7. Miconazole 2% vaginal cream 1 applicator full vaginally once daily for 7 days. 8. Altace 5 mg p.o. b.i.d. 9. Bactrim DS 1 p.o. b.i.d. for 1 additional week. FOLLOW UP: The patient will follow up in my office in 3-1/2 weeks. cc: Prieto Rizzo MD
== END 2019-02-27 13:50 | DRG 312 ==
LOC: ED 23:27 → EDIPHOLD 02-22 05:48 → SUATTDRO 02-22 05:48 → 4N 02-22 12:12
PROVIDERS: ADMIT Family Medicine; ATTEND Family Medicine
CPT/HCPCS: 70450; 70553; 71010; 71045; 73030; 73100; 80048; 81001; 82948; 83735; 84484; 84550; 85025; 85610; 85730; 87040; 87077; 87088; 87186; 93005; 93306; 93880; 94761; 94799; 96365; 96367; 97162; 97530; 99285; A9270; A9579; J0696; J1650; J1815; J3475; XXXXX

== ENCOUNTER 2019-03-12 23:03 | Inpatient (IN) ==
[2019-03-12 23:16] LABS: ALLEN TEST YES; BE 3.1 mmoll (-3.0-3.0); BLOOD TYPE ARTERIAL; HCO3-(ACT) 27.3 mmoll (20.0-26.0); METHB 0.1 % (0.0-1.5); O2(CT) 15.3 mL/dL (15.0-23.0); O2HB 96.5 % (95.0-99.0); PCO2(98.6) 38 mmHg (35-45); PO2(98.6) 74 mmHg (60-100); SAMPLE BLOOD; SAO2 100.9 % (95.0-100.0); THB 11.2 g/dL (11.5-17.4); pH(98.6) 7.46 (7.35-7.45)
--- NOTE | 2019-03-12 23:17 | PROVIDER DOCUMENTATION ---
HPI-General Adult - General Chief Complaint: Altered Mental Status Stated Complaint: dka Time Seen by Provider: 03/13/19 00:05 Source: EMS Allergies/Adverse Reactions: Patient Allergies Allergy/AdvReac Type Severity Reaction Status Date / Time No Known Allergies Allergy Verified 02/22/19 00:49 Home Medications: Home Medication List Medication Instructions Recorded Confirmed Last Taken Type Insulin Novolog 70/30 [Novolog Mix 15 units SQ QHS 11/28/18 02/22/19 11/27/18 History 70/30] Insulin Novolog 70/30 [Novolog Mix 37 units SQ QAM 11/28/18 02/22/19 11/27/18 History 70/30] ATORVAstatin [Lipitor] 1 tab PO QHS 01/23/19 02/22/19 Unknown History Aspirin 81 mg PO DAILY 02/22/19 02/22/19 Unknown History RAMIpril [Altace] 5 mg PO BID #60 cap 02/24/19 Unknown Rx Sulfamethoxazole/Trimethoprim 1 ea PO BID #14 tab 02/24/19 Unknown Rx [Bactrim Ds Tablet] Acetaminophen [Tylenol] 650 mg PO Q6H PRN PRN tab 02/27/19 Unknown Rx Donepezil [Aricept] 10 mg PO DAILY #305 tab 02/27/19 Unknown Rx Insulin Novolog 70/30 [Novolog Mix 15 unit SUBQ QHS insuln.pen 02/27/19 Unknown Rx 70/30] Menthol/Zinc Oxide Ointment 1 gm TOP PRN PRN tube 02/27/19 Unknown Rx [Calmoseptine Ointment] Miconazole 2% Vag Cream 1 appful VAG HS #7 tube 02/27/19 Unknown Rx [Monistat-7 Vag Cream] Sulfamethoxazole/Tmp D.s. [Septra 1 ea PO BID #14 tab 02/27/19 Unknown Rx Ds] Review of Systems - Adult - REVIEW OF SYSTEMS - ADULT ROS:: unobtainable per condition Constitutional: reports: fatique Eyes: reports: no symptoms reported Ears, Nose, Mouth & Throat: reports: no symptoms reported Cardiovascular: reports: no symptoms reported Respiratory: reports: no symptoms reported Gastrointestinal: reports: no symptoms reported Genitourinary: reports: no symptoms reported Musculoskeletal: reports: no symptoms reported Integumentary: reports: no symptoms reported Neurological: reports: other (obtunded) Psychiatric: reports: no symptoms reported Endocrine: reports: other (hyperglycemia) Allergic/Immunologic: reports: no symptoms reported Past History - Adult - PAST MEDICAL HISTORY-ADULT Review of Records: reports: Old Records Reviewed, Nursing Assessment Review Major Childhood Illnesses: reports: denies history Cardiovascular: reports: HTN Respiratory: reports: denies history Gastrointestinal: reports: denies history Obstetrical/Gynecological: reports: denies history Genitourinary: reports: denies history Musculoskeletal: reports: denies history Neurological: reports: denies history Endocrine/Immune: reports: Diabetes Other Conditions: reports: denies history - PRIOR SURGERIES/PROCEDURES Surgical/Procedure History: reports: none - IMMUNIZATION STATUS Childhood Immunizations: See Nurse Assessment Flu Vaccine: See Nurse Assessment - FAMILY HISTORY Family History: reviewed, not pertinent Physical Exam-General - PHYSICAL EXAM-ADULT Initial Vital Signs Reviewed: Yes - CONSTITUTIONAL General Appearance: lethargic, obtunded - EYES Eyes: pink conjunctivae - HEAD, EARS, NOSE, MOUTH & THROAT HENMT: normocephalic/atraumatic - NECK Neck: non-tender, supple - RESPIRATORY Respiratory: lungs clear, normal breath sounds - CARDIOVASCULAR Cardiovascular: normal peripheral pulses, regular rate, rhythm - GASTROINTESTINAL (ABDOMEN) Abdominal Exam: non tender, soft - MUSCULOSKELETAL Back Exam: no CVA tenderness Extremity: non-tender - SKIN Integumentary: diaphoresis - NEUROLOGIC Neurologic: other (unable to fully assess, paitent was unresponsive) Progress - PLAN OF CARE/RESULTS Progress/Plan/Lab Results: Orders Category Date Time Status Saline Loc NOW Care 03/12/19 23:15 Active ABG [RESP] Routine Lab 03/12/19 23:14 Ordered CBC WITH DIFF [HEME] Stat Lab 03/12/19 23:16 Ordered COMPREHENSIVE METABOLIC PANEL [CHEM] Stat Lab 03/12/19 23:16 Ordered TROPONIN T Stat Lab 03/12/19 23:16 Ordered Result Diagrams: 03/12/19 23:24 03/12/19 23:24 - EKG 1 Time of EKG reading by physician:: 23:38 EKG Read and Signed by:: Paris Bryant EKG Interpretation (*Must complete 3 of following elements*): Abnormal Rate: 107 Rhythm: ST [place]: normal QRS: normal SC Interval: normal ST Wave: normal - CONSULTS/PCP/HOSPITALIST Notification #1 *Consult/PCP/Hospitalist*: Dr Trevino Time Discussed: 05:15 Consult Disposition: Admit Departure - Departure Date of Disposition Decision: 03/13/19 Time of Disposition Decision: 05:13 DIAGNOSIS: Hyperglycemia, Dehydration Disposition: ADMITTED INPATIENT 09 Certified Medical Emergency: Emergent Condition: Good Referrals and Follow-Ups: Prieto Rizzo MD [Primary Care Provider] - - Critical Care Note This patient required my direct & personal management of CC.: No Attestation - Physician/ GEOVANI Attestation Patient care was provided by Advanced Practice Provider:: No The physician spent face to face time with patient:: Yes Advanced Practice Provider documentation review:: Supervising physician onsite and consulted in the evaluation and care of this patient. The physician did have a face to face encounter with the patient.
[2019-03-12 23:19] LABS: MODALITY ROOM AIR
[2019-03-12] MEDS ORDERED: NS 1,000 ML IV ONE (23:23)
[2019-03-12 23:46] LABS: BASO# 0.01 X1000 (0.0-0.2); BASO% 0.1 % (0.0-0.8); HEMATOCRIT 36.1 % (37.0-47.0); HEMOGLOBIN 11.8 g/dL (12.0-16.0); IMM GRAN# 0.04 X1000 (0.0-0.04); IMM GRAN% 0.3 % (0.0-0.5); LYMPH# 0.89 X1000 (1.2-3.4); LYMPH% 5.6 % (20.5-51.1); MCH 27.8 PG (27-31); MCHC 32.7 g/dL (33-37); MCV 84.9 FL (81-99); MONO# 1.42 X1000 (0.11-0.59); MPV 10.9 FL (7.4-10.4); NEUT# 13.41 X1000 (1.4-6.5); PLT 328 X1000 (130-400); RBC 4.25 XMIL (4.2-5.4); RDW 14.7 % (11.5-14.5); WBC 15.77 X1000 (4.8-10.8)
[2019-03-13 00:25] LABS: ALB/GLOB RATIO 1.1; ALBUMIN 3.1 g/dL (3.5-5.0); CALCIUM 9.5 mg/dL (8.8-10.2); CREATININE 2.5 mg/dL (0.5-0.9); POTASSIUM 5.3 mmol/L (3.5-5.1); TOTAL BILIRUBIN 0.41 mg/dL (0.20-1.00)
[2019-03-13] MEDS ORDERED: HUMULIN R IV ONE (00:42)
[2019-03-13 05:59] LABS: CALCIUM 9.3 mg/dL (8.8-10.2); CREATININE 2.1 mg/dL (0.5-0.9); POTASSIUM 5.1 mmol/L (3.5-5.1)
[2019-03-13] MEDS ORDERED: HUMULIN R SUBQ ONE (06:45)
--- NOTE | 2019-03-13 07:04 | HISTORY AND PHYSICAL ---
PRIMARY CARE PHYSICIAN: Unknown. CHIEF COMPLAINT: Altered mental status, elevated blood glucose. HISTORY OF PRESENTING ILLNESS: A 78-year-old, elderly female with a history of dementia, hypertension, diabetes mellitus type 2, and hyperlipidemia, who was sent from [facility] due to patient being altered and having elevated blood glucose. The patient was seen in the emergency department. It seemed that she was dehydrated and her blood glucose was elevated in the 600 range. She was given IV insulin and IV fluids, and she had some minimal improvement. Due to her presenting symptoms, she will require admission for further management. The patient is a poor historian due to her present condition and most of the history is obtained from previous records and a family member. PAST MEDICAL HISTORY: Includes dementia, hypertension, diabetes mellitus type 2, hyperlipidemia. PAST SURGICAL HISTORY: None. ALLERGIES: No known drug allergies. CURRENT MEDICATIONS: Include Aricept, Lipitor, NovoLog. SOCIAL HISTORY: No history of smoking, alcohol, or illicit drug use. She resides at a longterm. FAMILY HISTORY: No history of coronary artery disease. REVIEW OF SYSTEMS: Limited. PHYSICAL EXAMINATION: GENERAL: The patient is resting comfortably. She is without any respiratory distress. VITAL SIGNS: Temperature 97.5 degrees, pulse 112, respirations 26, blood pressure 116/72. HEENT: Atraumatic, normocephalic. PERRLA. NECK: No masses. CHEST: Clear to auscultation. CARDIOVASCULAR: Regular rate and rhythm. ABDOMEN: Soft. Positive bowel sounds. EXTREMITIES: No edema. NEUROLOGIC: She is awake, alert, oriented x1. : No bladder distention. SKIN: Poor turgor. LABORATORIES AND STUDIES: WBCs 15.77, hemoglobin 11.8, hematocrit 36.1, platelets 328,000. Sodium 144, potassium 5.1, chloride 104, CO2 is 24, BUN is 86, creatinine is 2.1, glucose initially was 655. ASSESSMENT: A 78-year-old, elderly female with a history of dementia, hypertension, diabetes mellitus type 2, and hyperlipidemia, who had presented to the emergency department due to altered mental status and elevated blood glucose. She was evaluated in the emergency department. She was found to be dehydrated. She was started on intravenous fluid and her blood glucose was treated with intravenous insulin. Patient will require admission for further management. 1. Acute dehydration. 2. Altered mental status secondary to #1. 3. Diabetes mellitus type 2 with hyperglycemia. 4. Acute kidney injury. 5. Hypertension. 6. Dementia. PLAN: 1. We will admit the patient to the medical floor with telemetry. 2. We will continue with IV fluids. 3. We will monitor neurological status. 4. Put patient on sliding scale insulin regimen and monitor blood glucose closely. 5. We will monitor renal function. 6. Monitor blood pressure, resume antihypertensive agent. 7. Restart other home medications. 8. Put patient on DVT prophylaxis with SCD. 9. We will continue to follow and reassess, and make further recommendation based on patient's clinical course. cc: Yeyo Trevino MD
[2019-03-13 07:06] LABS: BILIRUBIN URINE NEGATIVE (NEGATIVE); BLOOD URINE NEGATIVE (NEGATIVE); COLOR YELLOW; GLUCOSE URINE >1000 mg/dL (NEGATIVE); KETONE URINE TRACE mg/dL (NEGATIVE); LEUKOCYTES URINE NEGATIVE (NEGATIVE); NITRITE URINE NEGATIVE (NEGATIVE); TURBIDITY URINE CLEAR (CLEAR); UR EPITHELIAL CELLS <10 /HPF (<10); URINE BACTERIA NEGATIVE /HPF; URINE RBC <10 /HPF (<10); URINE SOURCE CATH; URINE WBC <10 /HPF (<10); UROBILINOGEN URINE NORMAL (NORMAL)
[2019-03-13 07:39] LABS: PROTEIN URINE NEGATIVE (NEGATIVE); SP GRAVITY URINE 1.021
--- NOTE | 2019-03-13 07:42 | EKG Report ---
Test Performed on : 03/12/2019 11:38:00 PM Test Reason : ED. NO EKG ORDER FOR MUSE Blood Pressure : / mmHG Vent. Rate : 107 BPM Atrial Rate : 107 BPM P-R Int : 180 ms QRS Dur : 078 ms QT Int : 324 ms P-R-T Axes : 080 063 006 degrees QTc Int : 432 ms Sinus tachycardia. Otherwise normal ECG When compared with ECG of 22-FEB-2019 01:38, (Unconfirmed) premature supraventricular complexes. are no longer present T wave inversion no longer evident in Anterior leads Unconfirmed Result
--- NOTE | 2019-03-13 07:47 | Diag Imaging Result Doc PS360 ---
EXAM: CHEST-PORTABLE INDICATION: Hyperglycemia TECHNIQUE: One view COMPARISON: 02/22/2019 FINDINGS: The lungs are grossly clear. There is no discrete pleural fluid collection or pneumothorax. The cardiomediastinal silhouette and central vasculature are grossly unremarkable. IMPRESSION: No evidence of acute pathology by plain radiograph. Electronically signed by Heriberto Calix 03/13/2019 7:45 AM
[2019-03-13] MEDS ORDERED: ASPIRIN PO SCH (09:00)
[2019-03-13] MEDS ORDERED: ALTACE PO SCH (09:00)
[2019-03-13] MEDS ORDERED: ARICEPT PO SCH (09:00)
[2019-03-13] MEDS: NS 1,000 ML IV SCH ×2 (10:03→18:52)
[2019-03-13] MEDS: HUMULIN R SUBQ SCH ×4 (11:37→20:59)
[2019-03-13] MEDS ORDERED: CALMOSEPTINE OINTMENT TOP PRN (12:10)
[2019-03-13] MEDS ORDERED: TYLENOL PO PRN (13:15)
[2019-03-13] MEDS ORDERED: VASOTEC IV SCH (18:15)
[2019-03-13] MEDS ORDERED: TYLENOL PR PRN (18:17)
--- NOTE | 2019-03-13 18:41 | PROGRESS NOTE ---
DATE: 03/13/2019 SUBJECTIVE: H and P reviewed and I discussed the patient in detail with her and her brother. The patient has had a decline over the past 3 years where she has been very forgetful and could not find her way at times. She had been diagnosed with Alzheimer's dementia, and that has really worsened over the past 6 months or so drastically. She has gotten to where she cannot eat on her own and does not remember to eat or drink. She has been in the rehab facility recently. Her has been feeding her each meal 3 times a day for the last month, but she has gotten dehydrated. Creatinine golden to 2. It was normal a month or so ago. Blood sugars have increased. She is a bad diabetic, requiring insulin Nurses relate she has had some difficulty swallowing. OBJECTIVE: Afebrile. Vital signs stable. Chest x-ray negative. Urinalysis negative. Blood sugars very high, now coming down into 200s with treatment with the insulin. Remains on vigorous IV hydration. ASSESSMENT: 1. Delirium. 2. Alzheimer's dementia. 3. Dehydration. 4. Insulin dependent diabetes mellitus. 5. Hypertension. PLAN: 1. We will stop her oral medications currently as we are concerned about potential for aspiration. 2. We will give her IV Vasotec and p.r. Tylenol, the latter as required for symptoms. 3. Continue her vigorous insulin regimen with SSI. Monitor Accu-Cheks serially. 4. I spoke about end of life issues regarding Ms. Thomas with her and her brother, and they have not made a decision yet, but wish to talk to the grandson who will be in to see the patient tomorrow. At present, they are not in favor of a feeding tube. We will continue supportive measures. cc: Prieto Rizzo MD
[2019-03-13] MEDS ORDERED: LIPITOR PO SCH (21:00)
[2019-03-13] MEDS: NOVOLOG MIX 70/30 SUBQ SCH (21:00)
[2019-03-14] MEDS ORDERED: VANCOMYCIN IV PER PHARMACY MISC SCH (01:30)
[2019-03-14] MEDS: CARDIZEM 125/NS 125 MG/125 ML IVPB IV SCH ×2 (02:06→11:43)
[2019-03-14] MEDS: NS 1,000 ML IV SCH (02:07)
[2019-03-14] MEDS ORDERED: VANCOMYCIN 1 GM/NS 1 GM/250 ML IVPB IV ONE (02:15)
[2019-03-14] MEDS: HUMULIN R SUBQ SCH ×4 (06:39→20:45)
--- NOTE | 2019-03-14 07:12 | EKG Report ---
Test Performed on : 03/14/2019 01:15:55 AM Test Reason : rhythm change Blood Pressure : / mmHG Vent. Rate : 166 BPM Atrial Rate : 156 BPM P-R Int : 000 ms QRS Dur : 076 ms QT Int : 268 ms P-R-T Axes : 000 055 248 degrees QTc Int : 445 ms Atrial fibrillation. with rapid ventricular response. Low voltage QRS Septal infarct , age undetermined Marked ST abnormality, possible inferolateral subendocardial injury Abnormal ECG When compared with ECG of 12-MAR-2019 23:38, (Unconfirmed) Significant changes have occurred Confirmed by Fan LOMBARDI, Daniel Mandujano ([id number]) on 03/14/2019 9:06:50 AM
[2019-03-14 07:47] LABS: BASO# 0.01 X1000 (0.0-0.2); BASO% 0.1 % (0.0-0.8); EOS# 0.02 X1000 (0.0-0.7); EOS% 0.1 % (0.0-10.0); HEMATOCRIT 38.8 % (37.0-47.0); HEMOGLOBIN 12.1 g/dL (12.0-16.0); IMM GRAN# 0.04 X1000 (0.0-0.04); IMM GRAN% 0.3 % (0.0-0.5); LYMPH# 1.28 X1000 (1.2-3.4); LYMPH% 8.3 % (20.5-51.1); MCH 27.6 PG (27-31); MCHC 31.2 g/dL (33-37); MCV 88.4 FL (81-99); MONO# 0.87 X1000 (0.11-0.59); MONO% 5.6 % (1.7-9.3); MPV 10.2 FL (7.4-10.4); NEUT# 13.19 X1000 (1.4-6.5); NEUT% 85.6 % (42.2-75.2); PLT 268 X1000 (130-400); RBC 4.39 XMIL (4.2-5.4); WBC 15.41 X1000 (4.8-10.8)
[2019-03-14 08:14] LABS: AGAP 11; BUN 45 mg/dL (8-22); CALCIUM 8.6 mg/dL (8.8-10.2); CHLORIDE 115 mmol/L (98-107); COSMO 319; CREATININE 0.9 mg/dL (0.5-0.9); ESTIMATED GFR > 60; GLUCOSE 176 mg/dL (70-104); SODIUM 153 mmol/L (136-145); TCO2 27 mmol/L (25-35)
[2019-03-14 08:18] LABS: FREE T4 1.38 ng/dL (0.93-1.70); TSH 1.86 uIUmL (0.27-4.20)
[2019-03-14] MEDS ORDERED: LANOXIN IV ONE ×2 (08:45→12:33)
[2019-03-14] MEDS: NOVOLOG MIX 70/30 SUBQ SCH ×2 (08:49→20:47)
[2019-03-14] MEDS ORDERED: SODIUM CHLORIDE 0.9% INJ SCH (09:00)
[2019-03-14] MEDS: PROTONIX IV SCH (09:32)
[2019-03-14] MEDS: POTASSIUM CHLORIDE 10 MEQ in 1/2 NS 1,000 ML IV SCH ×2 (09:32→20:46)
[2019-03-14] MEDS: ZOSYN 3.375 GM in NS 50 ML IV SCH ×3 (09:33→20:44)
--- NOTE | 2019-03-14 09:36 | Diag Imaging Result Doc PS360 ---
EXAM: CHEST-PORTABLE - 03/14/2019 HISTORY: dyspnea TECHNIQUE: Portable chest COMPARISON: 03/12/2019 FINDINGS: Heart size appears within normal limits and stable. Inspiration is mildly shallow. 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 There is no consolidation, vascular congestion, pleural effusion, or pneumothorax identified. IMPRESSION: Mildly shallow inspiration. No other evidence of acute disease. Electronically signed by Varghese Harper 03/14/2019 9:34 AM
--- NOTE | 2019-03-14 13:27 | PROGRESS NOTE ---
DATE: 03/14/2019 SUBJECTIVE: Patient remains obtunded overall. She does wake up and knows her . She has developed atrial fibrillation with rapid ventricular response during the night and has failed to respond to maximum doses of Cardizem drip as patient was moved to the [facility] to perform that drip. OBJECTIVE: General: Patient obtunded, but is arousable. Cardiovascular: Irregularly irregular tachycardia. Lungs: Clear to auscultation. Abdomen: Nondistended. Extremities: No major edema. Neurologic: Patient remains very drowsy. Vital Signs: Afebrile, pulse 153, respirations 16, blood pressure 110/53, O2 saturation on 2 L 100%. LABORATORY DATA: White count 15, as it was yesterday, hemoglobin 12.1, platelets 268,000. Sodium 153, potassium 4.0, chloride 115, CO2 27, BUN 45, creatinine 0.9 down from 2.1 yesterday. Glucose 176 and in the mid 100s now this morning. TSH 1.86, free T4 1.38. Urinalysis yesterday negative. EKG done during the night shows atrial fibrillation with rapid ventricular response. Lab had called the floor and said 1 of her 2 blood cultures were positive for gram-positive cocci in clumps . ASSESSMENT: 1. New onset atrial fibrillation with rapid ventricular response. 2. Delirium. 3. Alzheimer's dementia. 4. Dehydration, improved. 5. Insulin-dependent diabetes mellitus, uncontrolled but improved now. 6. Hypertension. 7. One of 2 blood cultures confirmed per lab to be positive. PLAN: Stopped her IV Vasotec that was ordered late yesterday evening and will continue the Cardizem drip at 10 mg/hour. We will give digoxin 0.25 mg IV x1 and repeat in 4 hours if needed. Continue scheduled insulin dosing on her 70/30 insulin and with high-dose SSI as required. Give her half-normal saline with low-dose potassium supplementation. Repeat chest x-ray. We will ask Cardiology to see the patient in consultation as well. As only 1 blood culture is positive, we will monitor the situation on ongoing cultures but have opted to go ahead and cover her with Zosyn and vancomycin. Vancomycin was ordered during the night. No obvious signs of infection at this point. We are holding her oral medications for fear of aspiration at this time. Grandson is going to be in town this afternoon according to her and would like to have input into her long-term care/decisions. cc: Prieto Rizzo MD
--- NOTE | 2019-03-14 14:38 | EKG Report ---
Test Performed on : 03/14/2019 1:46:49 PM Test Reason : Rhythm Change Blood Pressure : / mmHG Vent. Rate : 079 BPM Atrial Rate : 079 BPM P-R Int : 152 ms QRS Dur : 066 ms QT Int : 364 ms P-R-T Axes : 023 067 -77 degrees QTc Int : 417 ms Sinus rhythm. with premature atrial complexes. Low voltage QRS Septal infarct (cited on or before 14-MAR-2019) ST & T wave abnormality, consider inferior ischemia ST & T wave abnormality, consider anterolateral ischemia Abnormal ECG When compared with ECG of 14-MAR-2019 01:15, Sinus rhythm. has replaced Atrial fibrillation. Vent. rate has decreased BY 87 BPM Serial changes of evolving Septal infarct present Confirmed by Fan LOMBARDI, Daniel Mandujano ([id number]) on 03/15/2019 10:20:12 AM
--- NOTE | 2019-03-14 16:09 | CARDIOLOGY CONSULTATION ---
DATE: 03/14/2019 HISTORY OF PRESENT ILLNESS: The patient is admitted with altered mental status, elevated blood sugar, dehydration, went into atrial fibrillation, and started on a Cardizem drip. The patient is back in sinus rhythm. This is a 78-year-old lady who is elderly with history of dementia for the last couple of years, history of hypertension, diabetes, hyperlipidemia, was sent from [facility] with elevated blood sugars. She has altered mental status. History was obtained from the chart. She is answering questions in monosyllables. She had a BUN and creatinine of 2.0 creatinine. She was started on IV fluids, given insulin. Her renal function has improved to BUN of 45 and creatinine of 0.9, decreased from 2.5. We discussed with her family members as well, she has been progressively worsening in her general health. She has been not taking any meals or fluids at all. She was admitted on 02/22/2019 with syncope. MRI scan at that time was normal. She had elevated blood pressures when she was admitted then with 222/122. REVIEW OF SYSTEMS: Could not be obtained from the patient. PAST MEDICAL HISTORY: 1. Dementia. 2. Hyperlipidemia. 3. Diabetes. 4. Hypertension. PAST SURGICAL HISTORY: None. ALLERGIES: Not known to be allergic to any medication. PHYSICAL EXAMINATION: Vital Signs: Blood pressure 116/72. Cardiovascular system: First and second heart sounds were heard. There was no S3 gallop. Respiratory System: Normal air entry. There are no crepitations or rhonchi. Abdomen: Soft. Central nervous system: Detailed examination not performed. Was moving extremities. Was answering in monosyllables. LABORATORY EXAMINATION: WBC 15.7, hemoglobin 11.8, hematocrit 36, platelet count of 328,000. ASSESSMENT AND PLAN: 1. Ms. Breanne Thomas is a 78-year-old lady with a history of dementia, hypertension, diabetes, hyperlipidemia, general poor health with significantly decreased food intake, is admitted with altered mental status, elevated blood sugars. From a cardiac standpoint, her echocardiogram done earlier this year revealed ejection fraction of 60 to 65%. 2. She is in back in sinus rhythm. Her atrial fibrillation was multifactorial, triggered by likely infection with elevated white count, ATN, as well as hypertriglyceridemia. Regardless, she is in sinus rhythm. We will discontinue the Cardizem drip and put her on Cardizem p.o. 60 mg 3 times a day. 3. For stroke prophylaxis, I had a detailed discussion with the patient's family. Risks of anticoagulation and fall is high. They would like to be treated more conservatively with aspirin alone. We will treat with aspirin 81 mg a day. 4. Hypertension. Blood pressure on current medication is stable. 5. Diabetes. Continue with management as planned. Thank you for the consult. cc: MD Prieto Price MD
[2019-03-14] MEDS: ASPIRIN PO SCH (16:21)
[2019-03-14] MEDS: CARDIZEM PO SCH ×2 (16:21→23:43)
[2019-03-15] MEDS: ZOSYN 3.375 GM in NS 50 ML IV SCH ×4 (03:24→20:53)
[2019-03-15 05:48] LABS: BASO# 0.01 X1000 (0.0-0.2); BASO% 0.1 % (0.0-0.8); EOS# 0.02 X1000 (0.0-0.7); EOS% 0.2 % (0.0-10.0); HEMATOCRIT 36.4 % (37.0-47.0); HEMOGLOBIN 11.4 g/dL (12.0-16.0); IMM GRAN# 0.03 X1000 (0.0-0.04); IMM GRAN% 0.3 % (0.0-0.5); LYMPH# 1.27 X1000 (1.2-3.4); LYMPH% 11.7 % (20.5-51.1); MCH 27.9 PG (27-31); MCHC 31.3 g/dL (33-37); MCV 89.2 FL (81-99); MONO# 0.75 X1000 (0.11-0.59); MONO% 6.9 % (1.7-9.3); MPV 10.6 FL (7.4-10.4); NEUT# 8.75 X1000 (1.4-6.5); NEUT% 80.8 % (42.2-75.2); PLT 212 X1000 (130-400); RBC 4.08 XMIL (4.2-5.4); RDW 14.9 % (11.5-14.5); WBC 10.83 X1000 (4.8-10.8)
[2019-03-15] MEDS: HUMULIN R SUBQ SCH ×4 (06:07→20:51)
[2019-03-15] MEDS: NOVOLOG MIX 70/30 SUBQ SCH ×2 (06:08→20:52)
[2019-03-15 06:09] LABS: CALCIUM 8.4 mg/dL (8.8-10.2); DIGOXIN 1.3 ng/mL (0.9-2.0); POTASSIUM 3.9 mmol/L (3.5-5.1)
[2019-03-15] MEDS: CARDIZEM PO SCH ×3 (07:58→23:14)
[2019-03-15] MEDS: ASPIRIN PO SCH ×2 (07:58→08:15)
[2019-03-15] MEDS: PROTONIX IV SCH (08:14)
--- NOTE | 2019-03-15 08:59 | PROGRESS NOTE ---
DATE: 03/15/2019 SUBJECTIVE: Patient has been talking with her grandson and her . She has been answering some questions and she asked for water and drank 3 cups of water this morning with a straw. There has been some question of whether she is a little weak on her left side, nothing definite. She had a MRI of the brain which showed pronounced cerebral atrophy about 2 weeks ago and had a CT scan of the head at that time showing similar. No strokes at that time. The patient converted from atrial fibrillation to sinus rhythm yesterday with treatment with Cardizem drip and then digoxin and she is on oral Cardizem now. OBJECTIVE: Vital Signs: Afebrile, pulse 76, respirations 15, blood pressure 139/50, O2 saturation 2 L is 100%. CV: Regular rate and rhythm. No murmur. Lungs: Generally clear. Abdomen: Nondistended. Extremities: No calf tenderness, cords or edema. She has pneumatic compression hose in place. Neurologic: Patient is arousable. She does open her eyes when asked to and she does not look about. She looks to the right side a lot. I cannot definitely find any definite weakness in her right arm or left arm comparatively, but she is weak generally. LABS: Blood sugars in the 97 to 181 range. White count is down from 15 to 10.8 with antibiotics. Hemoglobin 11.4, platelets 212,000. Sodium down from 153 yesterday to 149, potassium 3.9, chloride 114, CO2 24, BUN 33, creatinine 1.0, calcium 8.4. Cardiac enzymes and troponin levels negative x3. ASSESSMENT: 1. Atrial fibrillation with rapid ventricular response yesterday, now converted back to sinus rhythm. Dr. Soni is following the patient and has her on Cardizem orally now and aspirin. She is not a candidate for more aggressive anticoagulation due to fall risk. 2. Dehydration, improved. 3. Hypernatremia, improving with half-normal saline rather than normal saline. 4. Delirium, improved. 5. Alzheimer's dementia. 6. Hypertension. 7. Insulin-dependent diabetes mellitus. 8. One of two (1/2) blood cultures positive, appears to be a contaminant. 9. Leukocytosis with no definite source of infection. PLAN: For now, continue antibiotics of Zosyn and vancomycin and we will observe. Continue half- normal saline and try to give her free water oral intake. Continue oral Cardizem and aspirin therapy and we will check CT head due to possible left-sided neglect. Will start prophylactic doses of Lovenox if that is negative. We will start physical therapy for range of motion exercises. cc: Prieto Rizzo MD
[2019-03-15] MEDS: POTASSIUM CHLORIDE 10 MEQ in 1/2 NS 1,000 ML IV SCH (12:23)
--- NOTE | 2019-03-15 12:42 | Diag Imaging Result Doc PS360 ---
EXAM: CT HEAD W/O CONTRAST 03/15/2019 HISTORY: encephalopathy TECHNIQUE: This exam was performed using automated exposure control, adjustment of mA or kV according to patient size, and/or use of iterative reconstruction technique. COMMENT: There are calcifications present in the vertebral and internal carotid arteries bilaterally. There is patchy lucency in the periventricular white matter and subcortical white matter both hemispheres particularly in the frontal regions. No evidence of mass effect, bleed, or abnormal extra-axial fluid collection is present. Compared to 02/22/2019 the appearance of the brain has not changed significantly. IMPRESSION: Chronic ischemic microvascular changes. Electronically signed by Will Chacko 03/15/2019 12:40 PM
[2019-03-15] MEDS ORDERED: BLISTEX MEDICATED BERRY LIP BALM TOP PRN (15:35)
[2019-03-16] MEDS: ZOSYN 3.375 GM in NS 50 ML IV SCH ×4 (02:21→20:59)
[2019-03-16] MEDS ORDERED: VANCOMYCIN 1 GM/NS 1 GM/250 ML IVPB IV SCH (03:00)
[2019-03-16 05:39] LABS: HEMATOCRIT 31.2 % (37.0-47.0); HEMOGLOBIN 9.9 g/dL (12.0-16.0); MCH 27.3 PG (27-31); MCHC 31.7 g/dL (33-37); MCV 86.2 FL (81-99); MPV 10.7 FL (7.4-10.4); NEUT% 66.8 % (42.2-75.2); PLT 190 X1000 (130-400); RBC 3.62 XMIL (4.2-5.4); RDW 13.9 % (11.5-14.5); WBC 8.34 X1000 (4.8-10.8)
[2019-03-16 05:40] LABS: EOS# 0.09 X1000 (0.0-0.7); EOS% 1.1 % (0.0-10.0); IMM GRAN# 0.05 X1000 (0.0-0.04); IMM GRAN% 0.6 % (0.0-0.5); LYMPH# 2.03 X1000 (1.2-3.4); LYMPH% 24.3 % (20.5-51.1); MONO% 7.2 % (1.7-9.3); NEUT# 5.57 X1000 (1.4-6.5)
[2019-03-16 05:52] LABS: AGAP 12; BUN 16 mg/dL (8-22); CALCIUM 7.5 mg/dL (8.8-10.2); CHLORIDE 101 mmol/L (98-107); COSMO 274; CREATININE 0.8 mg/dL (0.5-0.9); ESTIMATED GFR > 60; GLUCOSE 140 mg/dL (70-104); POTASSIUM 3.3 mmol/L (3.5-5.1); SODIUM 135 mmol/L (136-145); TCO2 22 mmol/L (25-35)
[2019-03-16] MEDS: POTASSIUM CHLORIDE 10 MEQ in 1/2 NS 1,000 ML IV SCH (05:59)
[2019-03-16] MEDS: NOVOLOG MIX 70/30 SUBQ SCH ×2 (06:00→21:01)
[2019-03-16] MEDS: HUMULIN R SUBQ SCH ×4 (06:00→21:00)
[2019-03-16] MEDS ORDERED: KLOR-CON PO ONE (08:43)
[2019-03-16] MEDS: CARDIZEM PO SCH ×2 (09:28→16:32)
[2019-03-16] MEDS: PROTONIX IV SCH (09:28)
[2019-03-16] MEDS: LOVENOX SUBQ SCH (09:28)
[2019-03-16] MEDS: ASPIRIN PO SCH (09:28)
[2019-03-16] MEDS ORDERED: POTASSIUM CHLORIDE 20% LIQUID PO ONE (09:55)
--- NOTE | 2019-03-16 13:46 | PROGRESS NOTE ---
DATE: 03/16/2019 SUBJECTIVE: The patient is easily arousable. She answers questions. She is alert and oriented x3. is in with her, and he is participating in her care. She keeps her eyes closed a lot and does not answer questions spontaneously, but will eat when fed and answers questions very appropriately today, much better than 2 days ago. OBJECTIVE: Vital Signs: Afebrile, T-max 99.1 degrees axillary, pulse 83, respirations 17, blood pressure 116/41, O2 saturation on 2 L is 100%. CV: RRR. No murmur. Lungs: Clear. Abdomen: Soft, nontender, nondistended. Extremities: No edema, calf tenderness or cords. Neurologic: Cranial nerves 2-12 are intact. She moves all extremities well. Generally fair strength in her extremities and equal today. X-RAYS: CT scan of her head yesterday done without contrast reveals chronic ischemic microvascular changes and some atrophy, otherwise no acute stroke signs. LABORATORIES: White count of 8.3, hemoglobin 9.9, platelets 190, neutrophils 67, lymphocytes 24. Sodium 135, potassium 3.3, chloride 101, CO2 22. BUN 16, creatinine 0.8. Blood sugars in the mid 100s. Blood cultures: 1 of the 2 blood cultures grew out coagulase-negative Staph. Otherwise, the other 1 is not growing anything. ASSESSMENT: 1. Atrial fibrillation, now reverted back to sinus, doing well on Cardizem orally and aspirin. She is not a candidate for other anticoagulation due to fall risk. 2. Dehydration, resolved. 3. Hypernatremia, resolved. 4. Hypokalemia, mild. 5. Delirium, much improved. 6. Alzheimer dementia, nearly back to baseline now. 7. Hypertension. 8. Insulin-dependent diabetes mellitus. 9. One of two blood cultures positive with coagulase-negative Staphylococcus, thought contaminant. 10. Leukocytosis. 11. Anemia. PLAN: I believe she does have an infection, but the etiology has not been found. Chest x-rays have been negative. Urinalysis was non informative and her blood cultures show the contaminant. She has seen white count trend downward from 15 to 8, and I am going to keep her on the intravenous antibiotics 1 more day, then tomorrow switch her over to oral. We will change her back to normal saline with potassium supplementation for low-dose maintenance IVF, and will continue to try to feed and give her fluids orally as best we can. I will have to arouse her to do so. We will try to work with physical therapy as she is improving. The patient's declines rehab again as she was just there, and wishes to have home health care. That will be started in regard to process of getting that. cc: Prieto Rizzo MD
[2019-03-16] MEDS: MIRALAX PO SCH (14:16)
[2019-03-16] MEDS: NS + KCL 20 MEQ 1,000 ML IV SCH (14:43)
[2019-03-17] MEDS: CARDIZEM PO SCH ×4 (00:28→23:06)
[2019-03-17] MEDS ORDERED: VANCOMYCIN 1 GM/NS 1 GM/250 ML IVPB IV SCH (02:30)
[2019-03-17] MEDS: ZOSYN 3.375 GM in NS 50 ML IV SCH ×3 (03:32→16:11)
[2019-03-17 05:35] LABS: BASO# 0.01 X1000 (0.0-0.2); BASO% 0.2 % (0.0-0.8); EOS# 0.05 X1000 (0.0-0.7); EOS% 0.8 % (0.0-10.0); HEMATOCRIT 31.6 % (37.0-47.0); HEMOGLOBIN 10.3 g/dL (12.0-16.0); IMM GRAN# 0.05 X1000 (0.0-0.04); IMM GRAN% 0.8 % (0.0-0.5); LYMPH# 1.55 X1000 (1.2-3.4); LYMPH% 23.6 % (20.5-51.1); MCH 27.8 PG (27-31); MCHC 32.6 g/dL (33-37); MCV 85.2 FL (81-99); MONO% 9.1 % (1.7-9.3); MPV 10.3 FL (7.4-10.4); NEUT% 65.5 % (42.2-75.2); PLT 162 X1000 (130-400); RBC 3.71 XMIL (4.2-5.4); RDW 13.6 % (11.5-14.5); WBC 6.56 X1000 (4.8-10.8)
[2019-03-17 06:15] LABS: AGAP 9; BUN 12 mg/dL (8-22); CALCIUM 7.5 mg/dL (8.8-10.2); CHLORIDE 105 mmol/L (98-107); COSMO 274; CREATININE 0.7 mg/dL (0.5-0.9); ESTIMATED GFR > 60; GLUCOSE 115 mg/dL (70-104); SODIUM 137 mmol/L (136-145); TCO2 23 mmol/L (25-35)
[2019-03-17] MEDS: HUMULIN R SUBQ SCH ×5 (06:27→23:36)
[2019-03-17] MEDS: NOVOLOG MIX 70/30 SUBQ SCH ×2 (06:28→21:09)
[2019-03-17] MEDS: LOVENOX SUBQ SCH (08:49)
[2019-03-17] MEDS: ASPIRIN PO SCH (08:49)
[2019-03-17] MEDS: PROTONIX IV SCH (08:49)
[2019-03-17] MEDS: MIRALAX PO SCH (08:49)
[2019-03-17] MEDS: NS + KCL 20 MEQ 1,000 ML IV SCH (11:40)
[2019-03-17] MEDS: LIPITOR PO SCH (21:09)
--- NOTE | 2019-03-17 22:23 | PROGRESS NOTE ---
DATE: 03/17/2019 SUBJECTIVE: Patient continues to very slowly improve. She is more alert and talkative with her , although still gazes to the right prominently. OBJECTIVE: Afebrile, pulse 83, respirations 23, blood pressure 138/50, O2 saturation on 2 L 100%.CV: RRR. Lungs: Clear. Abdomen: Soft, active bowel sounds. Nondistended, nontender. BM x1. Extremities: Trace lower extremity edema. Neuro: Patient is alert and oriented x2. She moves all extremities but again gazes to the right. She does make herself look to the left slightly but not fully. CT scan of the head without contrast done 03/15 shows chronic microvascular ischemic changes, nothing acute. LABS: Show sodium 137, potassium 4.0, chloride 105, CO2 23, BUN 12, creatinine 0.7. Blood sugars mid 100s. Calcium 7.5. White count 6.5, hemoglobin 10.3, platelets 162,000. One of 2 blood cultures grew coag-negative staph but this is thought to be a contaminant. ASSESSMENT: 1. Delirium, improved. 2. 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 3. Atrial fibrillation, stable in sinus rhythm now on Cardizem and aspirin. 4. Dehydration resolved. 5. Hypernatremia, resolved. 6. Hypokalemia, resolved. 7. Hypertension. 8. Insulin-dependent diabetes mellitus. 9. One of 2 blood cultures growing out coagulase-negative staph thought related to contaminant. 10. Leukocytosis with improvement with antibiotics with no obvious source of infection however. 11. Anemia. PLAN: We will change her from Zosyn and vancomycin IV to doxycycline and Augmentin orally and monitor her labs and monitor for fever. Reinstitute Aricept and Lipitor which she has been off of briefly due to illness and continue scheduled insulin of 70/30 with SSI as required. She is eating a little more now with 's efforts and will proceed with home health care later next week when she is stronger. Physical therapy continues for now. cc: Prieto Rizzo MD
[2019-03-18] MEDS: HUMULIN R SUBQ SCH ×4 (06:50→21:47)
[2019-03-18] MEDS ORDERED: INSULIN PEN NEEDLES ONE ×2 (07:23→21:48)
[2019-03-18] MEDS: PROTONIX PO SCH (07:39)
[2019-03-18] MEDS: NOVOLOG MIX 70/30 SUBQ SCH ×2 (07:39→21:45)
[2019-03-18] MEDS: ASPIRIN PO SCH (09:28)
[2019-03-18] MEDS: CARDIZEM PO SCH ×3 (09:28→23:40)
[2019-03-18] MEDS: DOXYCYCLINE PO SCH ×2 (09:28→21:47)
[2019-03-18] MEDS: AUGMENTIN PO SCH ×2 (09:28→21:47)
[2019-03-18] MEDS: NS + KCL 20 MEQ 1,000 ML IV SCH (09:28)
[2019-03-18] MEDS: ARICEPT PO SCH (09:28)
[2019-03-18] MEDS: MIRALAX PO SCH (09:29)
[2019-03-18] MEDS: LOVENOX SUBQ SCH (09:29)
--- NOTE | 2019-03-18 20:04 | PROGRESS NOTE ---
DATE: 03/18/2019 PHYSICAL EXAMINATION: Vital signs: Stable with temperature 97.6 degrees, heart rate 86, respirations 16, blood pressure 150/60, O2 saturation on 2 liters nasal oxygen 100%. LABORATORY: Glucose ranged from 92 to 400, hemoglobin 10.3, hematocrit 31.6, white blood count 6500. Microbiology revealed coagulase negative Staph on blood culture, but this was felt to be contaminant. ASSESSMENT: She has been changed to p.o. antibiotics with doxycycline and Augmentin. She has some difficulty swallowing, and according to her had difficulty at home. Most of the time she requires her p.o. medicine to be crushed. She is alert and answers simple questions appropriately. Chest is clear. Abdomen is soft. PLAN: Physical therapy to ambulate. She can hopefully return home early next week. cc: MD Prieto Agosto MD
[2019-03-18] MEDS: LIPITOR PO SCH (21:47)
[2019-03-19 05:29] LABS: BASO# 0.01 X1000 (0.0-0.2); BASO% 0.2 % (0.0-0.8); EOS# 0.07 X1000 (0.0-0.7); EOS% 1.1 % (0.0-10.0); HEMATOCRIT 29.7 % (37.0-47.0); HEMOGLOBIN 9.6 g/dL (12.0-16.0); IMM GRAN# 0.06 X1000 (0.0-0.04); LYMPH# 1.61 X1000 (1.2-3.4); LYMPH% 25.9 % (20.5-51.1); MCH 27.5 PG (27-31); MCHC 32.3 g/dL (33-37); MCV 85.1 FL (81-99); MONO# 0.86 X1000 (0.11-0.59); MONO% 13.8 % (1.7-9.3); MPV 10.9 FL (7.4-10.4); PLT 176 X1000 (130-400); RBC 3.49 XMIL (4.2-5.4); RDW 14.1 % (11.5-14.5); WBC 6.21 X1000 (4.8-10.8)
[2019-03-19 05:55] LABS: AGAP 9; BUN 12 mg/dL (8-22); CALCIUM 8.2 mg/dL (8.8-10.2); CHLORIDE 105 mmol/L (98-107); COSMO 273; CREATININE 0.6 mg/dL (0.5-0.9); ESTIMATED GFR > 60; GLUCOSE 85 mg/dL (70-104); POTASSIUM 4.1 mmol/L (3.5-5.1); SODIUM 137 mmol/L (136-145); TCO2 23 mmol/L (25-35)
[2019-03-19] MEDS: HUMULIN R SUBQ SCH ×4 (06:27→22:00)
[2019-03-19] MEDS: NOVOLOG MIX 70/30 SUBQ SCH ×2 (06:35→22:00)
[2019-03-19] MEDS: NS + KCL 20 MEQ 1,000 ML IV SCH ×2 (06:36→08:50)
[2019-03-19] MEDS: PROTONIX PO SCH (06:36)
[2019-03-19] MEDS: ARICEPT PO SCH (08:49)
[2019-03-19] MEDS: DOXYCYCLINE PO SCH ×2 (08:49→22:00)
[2019-03-19] MEDS: AUGMENTIN PO SCH ×2 (08:49→22:00)
[2019-03-19] MEDS: ASPIRIN PO SCH (08:50)
[2019-03-19] MEDS: LOVENOX SUBQ SCH (08:50)
[2019-03-19] MEDS: CARDIZEM PO SCH ×3 (08:50→22:00)
[2019-03-19] MEDS: MIRALAX PO SCH (11:29)
--- NOTE | 2019-03-19 11:50 | PROGRESS NOTE ---
DATE: 03/19/2019 VITAL SIGNS: Temperature 98.1 degrees, heart rate 84, respirations 18, blood pressure 142/58, O2 saturation on room air 100%. LABORATORY: Hemoglobin 9.6, hematocrit 29.7, white blood count 6200 with normal differential. Sodium 137, potassium 4.1, BUN 12, creatinine 0.6, glucose 105, calcium 8.2. The patient is feeling a little better. She still has some trouble swallowing but otherwise is doing well. She has no significant pain. Chest is clear. Abdomen is soft. PLAN: Consider discharge home early in the week. cc: MD Prieto Agosto MD
[2019-03-19] MEDS ORDERED: LOMOTIL PO PRN (14:12)
[2019-03-19] MEDS: LIPITOR PO SCH (21:59)
[2019-03-20] MEDS: NS + KCL 20 MEQ 1,000 ML IV SCH ×2 (03:36→05:29)
[2019-03-20] MEDS: CARDIZEM PO SCH ×3 (06:25→21:10)
[2019-03-20] MEDS: PROTONIX PO SCH (06:25)
[2019-03-20] MEDS: HUMULIN R SUBQ SCH ×4 (06:28→20:44)
--- NOTE | 2019-03-20 08:49 | PROGRESS NOTE ---
DATE: 03/20/2019 SUBJECTIVE: The patient is arousable. She has no complaints. She has had some loose bowel movements and we are taking her off her antibiotics and her MiraLax. Clostridium difficile toxin and antigen are negative. OBJECTIVE: Vitals: T-max and T current 99.7, pulse 78, respirations 18, blood pressure 129/55, O2 saturation room air 98%. CV: Regular rate and rhythm. Lungs: Clear. Abdomen: Soft, nontender, nondistended. Extremities: No major edema. Neuro: Moves all extremities well. She is at her baseline of dementia. She answers questions but does not spontaneously ask questions. She moves all extremities well. Cranial nerves 2 through 12 are intact. LABORATORY DATA: Lab data from yesterday reviewed, which is good. Blood sugars in the 200 to 300 range. Clostridium difficile toxin and antigen negative. ASSESSMENT: 1. Delirium, resolved. 2. Moderate to severe Alzheimer's dementia. 3. Paroxysmal atrial fibrillation, stable on Cardizem and aspirin. 4. Dehydration, resolved. 5. Hypernatremia, resolved. 6. Hypokalemia, resolved. 7. Hypertension. 8. Insulin-dependent diabetes mellitus. 9. Diarrhea. 10. Anemia of chronic disease. PLAN: We will discontinue Augmentin and doxycycline due to diarrhea and we will stop the MiraLAX. Continue Aricept, Lipitor, her scheduled dose 70/30 insulin with SSI as required. Continue physical therapy and arrange for home health care when possible. We have arranged for her to have a hospital bed. We will discuss with her further. On previous discussions, they did not want a feeding tube. She is not eating well. We will continue to try to improve her nutrition with Ayaan guadarrama. cc: Prieto Rizzo MD
[2019-03-20] MEDS: ARICEPT PO SCH (09:38)
[2019-03-20] MEDS: NOVOLOG MIX 70/30 SUBQ SCH ×2 (09:38→20:45)
[2019-03-20] MEDS: LOVENOX SUBQ SCH (09:39)
[2019-03-20] MEDS: ASPIRIN PO SCH (09:39)
[2019-03-20] MEDS: LIPITOR PO SCH (20:44)
[2019-03-20] MEDS: LOTRISONE CREAM TOP SCH (20:45)
[2019-03-21] MEDS: NS + KCL 20 MEQ 1,000 ML IV SCH ×2 (00:44→04:43)
[2019-03-21] MEDS: PROTONIX PO SCH (06:24)
[2019-03-21] MEDS: NOVOLOG MIX 70/30 SUBQ SCH (06:25)
[2019-03-21] MEDS: CARDIZEM PO SCH ×3 (06:25→21:28)
[2019-03-21] MEDS: HUMULIN R SUBQ SCH ×4 (06:25→21:28)
[2019-03-21] MEDS: ASPIRIN PO SCH (09:24)
[2019-03-21] MEDS: LOVENOX SUBQ SCH (09:24)
[2019-03-21] MEDS: ARICEPT PO SCH (09:24)
[2019-03-21] MEDS: LOTRISONE CREAM TOP SCH ×2 (09:25→21:51)
--- NOTE | 2019-03-21 14:05 | DISCHARGE SUMMARY ---
ADMISSION DATE: 03/13/2019 DISCHARGE DATE: 03/21/2019 DIAGNOSES: 1. Delirium. 2. Dehydration. 3. Moderate to severe Alzheimer's dementia. 4. Insulin-dependent diabetes mellitus. 5. Hypertension. 6. Paroxysmal atrial fibrillation converted spontaneously back from atrial fibrillation to sinus rhythm during the hospitalization, and did well on Cardizem. The patient is on aspirin therapy, and not deemed to be a candidate for more anticoagulation than this due to potential for falls. 7. One of 2 blood cultures positive for coagulation negative Staph thought related to contaminant. 8. Hypernatremia, resolved. 9. Hypokalemia, resolved. 10. Anemia of chronic disease. 11. Leukocytosis, treated for a week with antibiotics and responsive to that with no obvious source of other infection. Blood cultures 1 of 2 positive with contaminant, clostridium difficile antigen and toxin negative. PROCEDURES: 1. Chest x-ray done on 03/12. No evidence of acute pathology. 2. Repeat chest x-ray done 03/14 with shallow respiration, otherwise negative. 3. CT scan of the head done without contrast 03/15. Chronic microvascular ischemic changes. No acute changes. CONSULTANTS: Dr. Soni, Cardiology. REASON FOR ADMISSION AND HOSPITAL COURSE: The patient is a 78-year-old white female followed in my medical practice. She had been at [facility]. She developed altered mental status, and was having elevated blood sugars in the 600 range. She was admitted, and she was placed on SSI and IV fluids. She was found to be dehydrated and was given vigorous amounts of hydration. She was delirious and received some IV insulin and then SSI. No obvious source of infection was seen, but she did have leukocytosis and she was placed on antibiotics for the first week of hospitalization. She seemed to respond in regard to white count decrease in that regard. She then was switched over to oral agents of Augmentin and doxycycline, and those were discontinued after she developed some diarrhea. MiraLAX was also discontinued due to the diarrhea. This was improved, and she was negative for C diff toxin and antigen. The patient responded well to hydration, and to better control of her blood sugar. She was placed on her home dose of insulin and with vigorous SSI and blood sugars were maintained thereafter in the 150 to 300 range during the hospitalization. Electrolytes showed at one point hypernatremia, and that responded to half-normal saline. She had some hypokalemia that was repleted. She did have some atrial fibrillation develop, and Dr. Soni was consulted. She was given Cardizem drip, IV digoxin and then converted back to sinus rhythm. Dr. Soni then placed her on Cardizem 60 mg q.8 hours, and she was maintained in sinus rhythm. Thyroid function tests were noted to be normal. Cardiac enzymes: Troponin level was negative. She was placed back on her Aricept, but as she had been off of it a few days we elected to treat her with 5 mg initially and then worked her up by discharge to 10 mg again. She was prophylaxed for DVT with Lovenox during the hospitalization. Physical Therapy worked with the patient. She did not eat well initially, and over the past 2 to 3 days prior to discharge, she began to converse a little more spontaneously and asked for water, and asked for Ensure. Her was very active in her care. She began to eat a few bites, and was drinking Ensure well. Blood sugars were increasing slightly so we adjusted upward on her home doses of insulin. We maintained her on her Lipitor, and she improved greatly. She had some yeast rash in her groin, which was treated with Lotrisone cream and some redness on her buttock areas, which were treated with Calmoseptine ointment. She had responded to the point that she was back to baseline. It was felt that she could be discharged back to the rehab facility. did not want a feeding tube, and this will be the main portion of her care that needs to be addressed during the rehab. She will need to be vigorously fed and given fluids to avoid dehydration as she does not voice her complaints well due to the Alzheimer's dementia, which is moderate to severe. She is DNR level 1. We will continue aggressive supportive measures. DISCHARGE MEDICATIONS: 1. Tylenol p.r.n. 2. Aspirin 81 mg p.o. daily. 3. Lipitor 40 mg p.o. at bedtime. 4. Lotrisone cream to groin b.i.d. 5. Cardizem CD 120 mg p.o. daily. 6. Blistex balm to the lips p.r.n. 7. Lomotil p.r.n. diarrhea. 8. Aricept 10 mg p.o. every morning. 9. NovoLog 70/30 insulin 41 units subcutaneous every morning, 20 units subcutaneous every evening with breakfast and supper respectively. She will be on SSI as well to help control her labile blood sugars. 10. Protonix 40 mg p.o. daily. DISCHARGE INSTRUCTIONS: Physical Therapy will assess the patient there, and wounds will be addressed at the rehab facility as well. cc: Prieto Rizzo MD
--- NOTE | 2019-03-21 19:30 | PROGRESS NOTE ---
DATE: 03/21/2019 SUBJECTIVE: The patient is more awake and spontaneously asking for some Ensure. She does look to her left better and is responsive, and appears to be more talkative today. She has been able to eat a few bites of potato and of some oatmeal this morning, and has been drinking Ensure and water well. OBJECTIVE: Afebrile. Pulse 93, respirations 18, blood pressure 135/45, O2 saturation on room air 99%.CV: RRR. Lungs clear. Abdomen nontender, nondistended. Active bowel sounds. Extremities: No edema. Neurologic: The patient is slow with speech, but answers questions. She is alert and oriented x2. She moves all extremities. She seems at her baseline confusion related to her Alzheimer disease. ASSESSMENT: 1. Moderate to severe Alzheimer disease. 2. Paroxysmal atrial fibrillation, stable on Cardizem and aspirin. 3. Hypertension. 4. Insulin-dependent diabetes mellitus. 5. Diarrhea related to antibiotics, improved off the antibiotics. 6. Anemia of chronic disease. PLAN: We had planned on discharging her to the rehabilitation facility today, but apparently her insurance is not allowing that at this point, not willing to commit to covering the rehab bed, so we will keep her overnight and continue her medications. We have adjusted upward on her 70/30 insulin slightly. Continue her Aricept, Lipitor and physical therapy. Continue to try to feed her vigorously. Her does not desire the feeding tube. We had the discharge summary done, but we will amend that tomorrow. If she is able to go the rehab tomorrow, we will correct the paperwork. cc: Prieto Rizzo MD
[2019-03-21] MEDS ORDERED: NOVOLOG MIX 70/30 SUBQ SCH (21:00)
[2019-03-21] MEDS ORDERED: INSULIN PEN NEEDLES ONE (21:27)
[2019-03-21] MEDS: LIPITOR PO SCH (21:28)
[2019-03-22] MEDS: NS + KCL 20 MEQ 1,000 ML IV SCH (02:18)
[2019-03-22] MEDS: PROTONIX PO SCH (06:17)
[2019-03-22] MEDS: HUMULIN R SUBQ SCH ×4 (06:17→20:31)
[2019-03-22] MEDS: CARDIZEM PO SCH ×3 (06:17→21:39)
[2019-03-22] MEDS ORDERED: NOVOLOG MIX 70/30 SUBQ SCH ×2 (07:00→08:00)
[2019-03-22] MEDS: ARICEPT PO SCH (08:17)
[2019-03-22] MEDS: ASPIRIN PO SCH (08:17)
[2019-03-22] MEDS: LOVENOX SUBQ SCH (08:18)
[2019-03-22] MEDS: LOTRISONE CREAM TOP SCH ×2 (08:18→20:35)
--- NOTE | 2019-03-22 08:57 | PROGRESS NOTE ---
DATE: 03/22/2019 SUBJECTIVE: Patient doing better. She is looking about answering questions appropriately, and is more alert and spontaneous with her speech. She is eating a little oatmeal, and ate about 25% of her meals yesterday. OBJECTIVE: Afebrile. Vital signs stable.CV: RRR without murmur. Lungs: Clear. Abdomen: Soft, nontender, and nondistended. Extremities: No edema. Neurologic: Baseline moderate to severe AD. Moves all extremities well. Answers a few questions. Baseline confusion fairly prominent. Slowed speech noted overall. Blood sugars in the 300s ASSESSMENT: 1. Moderate to severe Alzheimer's dementia. 2. Paroxysmal atrial fibrillation, stable on aspirin and Cardizem. 3. Hypertension. 4. IDDM. 5. Anemia of chronic disease. PLAN: We are continuing to adjust her insulin as she is eating better. She is requiring a little more dosage of the 70/30 NovoLog insulin. She also has backup of SSI's required. Continue Aricept, Lipitor, and physical therapy. Insurance was reluctant yesterday to allow her to go to the jail with coverage, so they are evaluating that today, and hopefully she will be able to go back to rehab today. cc: Prieto Rizzo MD
[2019-03-22] MEDS ORDERED: SALINE LOCK IV FLUID XX ONE (16:54)
[2019-03-22] MEDS: NOVOLOG MIX 70/30 SUBQ SCH (17:59)
[2019-03-22] MEDS: LIPITOR PO SCH (20:31)
[2019-03-23 05:42] LABS: HEMATOCRIT 27.9 % (37.0-47.0); MCH 28.2 PG (27-31); MCHC 32.3 g/dL (33-37); MCV 87.5 FL (81-99); MPV 10.3 FL (7.4-10.4); RBC 3.19 XMIL (4.2-5.4); RDW 14.4 % (11.5-14.5); WBC 7.93 X1000 (4.8-10.8)
[2019-03-23 05:59] LABS: AGAP 6; BUN 18 mg/dL (8-22); CHLORIDE 96 mmol/L (98-107); COSMO 268; CREATININE 0.7 mg/dL (0.5-0.9); ESTIMATED GFR > 60; GLUCOSE 135 mg/dL (70-104); POTASSIUM 3.9 mmol/L (3.5-5.1); SODIUM 132 mmol/L (136-145); TCO2 30 mmol/L (25-35)
[2019-03-23] MEDS: NOVOLOG MIX 70/30 SUBQ SCH ×2 (06:03→17:03)
[2019-03-23] MEDS: PROTONIX PO SCH (06:03)
[2019-03-23] MEDS: HUMULIN R SUBQ SCH ×4 (06:03→22:08)
[2019-03-23] MEDS: CARDIZEM PO SCH ×3 (06:03→22:07)
[2019-03-23] MEDS: LOTRISONE CREAM TOP SCH ×2 (08:55→22:07)
[2019-03-23] MEDS: ARICEPT PO SCH (08:55)
[2019-03-23] MEDS: LOVENOX SUBQ SCH (08:56)
[2019-03-23] MEDS: ASPIRIN PO SCH (08:56)
--- NOTE | 2019-03-23 14:24 | PROGRESS NOTE ---
DATE: 03/23/2019 SUBJECTIVE: Patient is arousable, answers questions. She remains moderately confused. She does not ask questions but will answer your questions repeatedly in a logical manner. You have to prompt her to get her to move about or answer questions but she does so with mild prompting. OBJECTIVE: Afebrile, pulse 80, respirations 18, blood pressure 150/51, O2 saturation on room air 99%. CV: RRR without murmur. Lungs: Clear. Abdomen: Soft, nontender, nondistended. Active bowel sounds. Extremities: No edema, calf tenderness, or cords. Neurologic: Alert and oriented x2. Moves all extremities well. Follows commands, answers questions, is somewhat confused. White count 7.9, hemoglobin 9, platelets 229,000. Sodium 132, potassium 3.9, chloride 96, CO2 30, BUN 18, creatinine 0.7, calcium 8.0. ASSESSMENT: 1. Moderate to severe Alzheimer's dementia. 2. Paroxysmal atrial fibrillation, stable on aspirin and Cardizem. 3. Hypertension. 4. Insulin-dependent diabetes mellitus. 5. Anemia of chronic disease. PLAN: I have taken her off of her IV fluids. has been vigorously active in getting her to drink and to eat her meals, and she is eating some. He declines feeding tube. We have adjusted upward on her NovoLog 70/30 insulin. She remains on Aricept, Lipitor, and physical therapy is working with the patient. The patient has been much more alert in the past 48-72 hours and with prompting, she will allow help in regard to physical therapy. Physical therapy needs to be aggressive in asking and prompting her to participate in care. She is medically able and willing to do so on discussions. I talked with the nursing staff. They are going to get her up in a chair daily. We will continue to try to feed her and to give her fluids to drink vigorously, especially with the help of the nurses aide. Her is elderly and is not able to lift and care for her at home. She has rehab days left. So far, insurance has not been willing to cover rehab. We will still continue to work on that at this point as she certainly is able to participate in rehab care but will need extra prompting. cc: Prieto Rizzo MD
[2019-03-23] MEDS: LIPITOR PO SCH (22:07)
[2019-03-24] MEDS: NOVOLOG MIX 70/30 SUBQ SCH ×2 (06:31→17:14)
[2019-03-24] MEDS: CARDIZEM PO SCH ×3 (06:32→21:25)
[2019-03-24] MEDS: PROTONIX PO SCH (06:32)
[2019-03-24] MEDS: HUMULIN R SUBQ SCH ×4 (06:32→21:26)
[2019-03-24] MEDS: ARICEPT PO SCH (09:59)
[2019-03-24] MEDS: ASPIRIN PO SCH (09:59)
[2019-03-24] MEDS: LOVENOX SUBQ SCH (09:59)
[2019-03-24] MEDS: LOTRISONE CREAM TOP SCH ×2 (09:59→21:34)
--- NOTE | 2019-03-24 17:06 | PROGRESS NOTE ---
DATE: 03/24/2019 SUBJECTIVE: Patient very responsive. She answers questions. Appears to be in good spirits. She does not spontaneously start to talk, but answers questions and is mild to moderately confused, but does answer questions, many of them appropriately. She denies pain. She is trying to participate with physical therapy. She was set up in a chair today for 3 hours. She will have to be prompted to get her to participate in her physical therapy activities. OBJECTIVE: Vital Signs: T-max 99.7 degrees, pulse 79, blood pressure 147/55, O2 saturation on room air 97%-98%. Cardiovascular: Regular rate and rhythm. Lungs: Clear. Abdomen: Nontender, nondistended. Active bowel sounds. Extremities: No calf tenderness, cords or edema. Neurologic: She moves all extremities well. She is slow with her speech but has no dysarthria. Cranial nerves 2-12 are intact. Blood sugars 213 at 11 a.m. this morning, prior to that has been running in the 300s. ASSESSMENT: 1. Moderate to severe Alzheimer's dementia. 2. Paroxysmal atrial fibrillation, stable on aspirin and Cardizem. 3. Hypertension. 4. Insulin-dependent diabetes mellitus. 5. Anemia of chronic disease. PLAN: We are still waiting on her to be able to go back to her rehab bed she was in prior to coming into the hospital. She is day-by-day getting better and able more to participate in her physical therapy care. She still has a way to go. It is very difficult for to care for her at home as he is quite elderly and it is going to be difficult if she does not get to the rehab bed. At present, no pneumonia or bedsores are apparent. She is drinking Ensure and ate all of her turnip greens today. We will continue to make daily progress and hope to get a rehab bed next week. If not, I have given the prescription for to get a hospital bed. We will try to get her home with home health care and home PT, but I am afraid this is fraught with danger and likely bounce-back potential is high. cc: Prieto Rizzo MD
[2019-03-24] MEDS: LIPITOR PO SCH (21:25)
[2019-03-25] MEDS: NOVOLOG MIX 70/30 SUBQ SCH ×2 (06:48→17:51)
[2019-03-25] MEDS: HUMULIN R SUBQ SCH ×4 (06:48→20:47)
[2019-03-25] MEDS: CARDIZEM PO SCH ×3 (06:48→20:43)
[2019-03-25] MEDS: PROTONIX PO SCH (06:48)
[2019-03-25] MEDS: ARICEPT PO SCH (09:38)
[2019-03-25] MEDS: ASPIRIN PO SCH (09:38)
[2019-03-25] MEDS: LOTRISONE CREAM TOP SCH ×2 (09:38→20:46)
[2019-03-25] MEDS: LOVENOX SUBQ SCH (09:38)
[2019-03-25] MEDS ORDERED: INSULIN PEN NEEDLES ONE (10:38)
[2019-03-25] MEDS: LIPITOR PO SCH (20:43)
--- NOTE | 2019-03-25 23:00 | PROGRESS NOTE ---
DATE: 03/25/2019 SUBJECTIVE: A 78-year-old white female, evaluated today for Dr. Rizzo. Patient is responsive, she answers the questions, she knows her name. Appears to be in good spirits. REVIEW OF SYSTEMS: None reported. PAST MEDICAL HISTORY: Reviewed. PAST SURGICAL HISTORY: Reviewed. MEDICATIONS: Reviewed. ALLERGIES: Not known. OBJECTIVE/EXAMINATION: Vital signs: Temperature 98.9 degrees, blood pressure is 137/46, 97%. In's and Outs negative, 100. HEENT: Within normal limits. Neck: Supple. Chest: Clear. Heart: Sounds are regular. Abdomen: Belly is soft. He is in diapers. Gonzales was seen. Extremities: Right heel is ischemic on the bottom of the heel. LABS: CBC: White cell count 7.9, hematocrit 27.9, platelets 229,000. Sodium 132, potassium 3.9, chloride 96, BUN 18, creatinine 0.7. Glucose 217. Blood cultures, coag- negative staph. C. difficile was negative. ASSESSMENT AND PLAN: 1. Dementia, moderate to severe, stable. 2. Declining performance status. 3. Right heel ischemic ulcer, currently stable. 4. History of anemia of the chronic disease, stable. 5. Paroxysmal atrial fibrillation, currently stable on Cardizem, aspirin. 6. Dementia, on Aricept. 7. Hyperlipidemia, on Lipitor. 8. Deep venous thrombosis prophylaxis with Lovenox. 9. Type 2 diabetes, 70/30, 23 units in the evening, 44 in the morning. Continue on sliding scale with insulin coverage. 10. Physical therapy consult, waiting the disposition for rehab. We are just going to monitor the pulses on the right foot and continue present treatment. LEVEL OF DOCUMENTATION: 35 minutes. cc: MD Prieto Olivo MD [facility]
[2019-03-26] MEDS: CARDIZEM PO SCH ×4 (05:36→20:12)
[2019-03-26] MEDS: PROTONIX PO SCH (06:59)
[2019-03-26] MEDS: HUMULIN R SUBQ SCH ×4 (06:59→20:52)
[2019-03-26] MEDS: NOVOLOG MIX 70/30 SUBQ SCH ×2 (07:00→18:23)
[2019-03-26] MEDS: ARICEPT PO SCH (09:10)
[2019-03-26] MEDS: ASPIRIN PO SCH (09:10)
[2019-03-26] MEDS: LOTRISONE CREAM TOP SCH ×2 (09:11→20:13)
[2019-03-26] MEDS: LOVENOX SUBQ SCH (09:11)
--- NOTE | 2019-03-26 14:33 | PROGRESS NOTE ---
DATE: 03/26/2019 SUBJECTIVE: The patient is more alert today and she wants to get out of the bed. REVIEW OF SYSTEMS: None reported. OBJECTIVE: Vital signs: Temperature is 99.2 degrees, pulse 83, blood pressure 170/67, 97% room air. Chest: Bilateral air entry. Heart: Sounds are regular. Abdomen: Belly is soft. : She is in diapers. She has a suction type of urine seen. Extremities: Right foot, she has an ischemic ulcer on the heel. I did not feel any pulses. LABORATORY: There were no labs. Blood sugars are running around 250. ASSESSMENT AND PLAN: 1. [id number] dementia, stable. On Aricept. 2. Out of the bed today as per the patient. 3. Right heel pressure ulcer. Currently stable as per the nurses. 4. History of anemia of chronic disease, stable. 5. Paroxysmal atrial fibrillation. Currently stable on aspirin and Cardizem. 6. Hyperlipidemia. On Lipitor. 7. Deep vein thrombosis prophylaxis with Lovenox. 8. Type 2 diabetes. Sugars around 250. Waiting for rehab placement. Continue present treatment. LEVEL OF DOCUMENTATION: 25 minutes. cc: MD Prieto Olivo MD
[2019-03-26] MEDS: LIPITOR PO SCH (20:12)
[2019-03-27] MEDS: CARDIZEM PO SCH ×4 (04:33→22:41)
[2019-03-27] MEDS: NOVOLOG MIX 70/30 SUBQ SCH ×2 (05:59→16:35)
[2019-03-27] MEDS: HUMULIN R SUBQ SCH ×4 (05:59→22:41)
[2019-03-27] MEDS: PROTONIX PO SCH (05:59)
[2019-03-27] MEDS: ASPIRIN PO SCH (10:47)
[2019-03-27] MEDS: ARICEPT PO SCH (10:47)
[2019-03-27] MEDS: LOVENOX SUBQ SCH (10:47)
[2019-03-27] MEDS: LOTRISONE CREAM TOP SCH ×2 (10:47→22:41)
--- NOTE | 2019-03-27 12:39 | PROGRESS NOTE ---
DATE: 03/27/2019 SUBJECTIVE: Ms. Thomas, who is Dr. Rizzo's patient, has [id number] dementia. She has right heel pressure ulceration. She is in atrial fibrillation, has diabetes mellitus, AF is paroxysmal at times. She is running about 99 degrees Fahrenheit. Has chronic anemia. Overall condition is unchanged. We will continue with the current management. cc: MD Prieto Armijo MD
[2019-03-27] MEDS: LIPITOR PO SCH (22:41)
[2019-03-28] MEDS: NOVOLOG MIX 70/30 SUBQ SCH (07:53)
[2019-03-28] MEDS: PROTONIX PO SCH (07:53)
[2019-03-28] MEDS: HUMULIN R SUBQ SCH ×4 (07:54→21:17)
--- NOTE | 2019-03-28 08:28 | PROGRESS NOTE ---
DATE: 03/28/2019 SUBJECTIVE: Patient remains stable. She is alert, looking about. She answers some questions when approached, but does not spontaneously ask questions. She is at her baseline. OBJECTIVE: Vitals: Afebrile. Vital signs stable. CARDIOVASCULAR: Irregularly irregular. Lungs: Computed tomography angiography. Abdomen: Soft, active bowel sounds. Nontender, nondistended. Extremities: No calf tenderness, cords or edema. Small heel ulcer. Neurologic: Moderate to severe confusion. Does answer questions, some appropriately. Moves all extremities. No spontaneous conversation. ASSESSMENT: 1. Moderate to severe Alzheimer's dementia. 2. Paroxysmal atrial fibrillation, stable on aspirin and Cardizem. 3. Insulin-dependent diabetes mellitus. 4. Hypertension. 5. Anemia of chronic disease. PLAN: I had a long discussion with her . She is a Do Not Resuscitate, Level 1 and we will get [facility] to evaluate the patient and help in her care. She is not a rehab candidate as she is not able to participate with ongoing trials of physical therapy and rehab and is deemed not a rehab candidate for insurance and physical therapy. We will plan on discharge when the hospital bed and hospice care are arranged fully. cc: Prieto Rizzo MD
[2019-03-28] MEDS: ARICEPT PO SCH (10:30)
[2019-03-28] MEDS: ASPIRIN PO SCH (10:30)
[2019-03-28] MEDS: LOVENOX SUBQ SCH (10:30)
[2019-03-28] MEDS: CARDIZEM CD PO SCH (10:30)
[2019-03-28] MEDS: LOTRISONE CREAM TOP SCH ×2 (10:45→21:17)
[2019-03-28] MEDS ORDERED: NOVOLOG MIX 70/30 SUBQ SCH (17:00)
[2019-03-28] MEDS: LIPITOR PO SCH (21:17)
[2019-03-29] MEDS: HUMULIN R SUBQ SCH ×2 (06:18→11:10)
[2019-03-29] MEDS: PROTONIX PO SCH (06:18)
[2019-03-29] MEDS ORDERED: NOVOLOG MIX 70/30 SUBQ SCH (07:00)
[2019-03-29] MEDS: CARDIZEM CD PO SCH (08:22)
[2019-03-29] MEDS: LOVENOX SUBQ SCH (08:22)
[2019-03-29] MEDS: ARICEPT PO SCH (08:22)
[2019-03-29] MEDS: ASPIRIN PO SCH (08:22)
--- NOTE | 2019-03-29 09:04 | DISCHARGE SUMMARY ---
DATE: 03/29/2019 SUBJECTIVE: Patient is sitting up and being fed by relatives. She is alert. She has no complaints and answers questions when asked. OBJECTIVE: Vital Signs: T-max 99.9 degrees axillary, pulse 97, respirations 16, blood pressure 154/72, O2 saturation on room air 97 to 98%. Cardiovascular: Regular rate and rhythm with occasional ectopy. Lungs: Clear. Abdomen: Nondistended. Extremities: No edema. Neurologic: Nonfocal. She remains very confused, but answers questions when asked, but she has no spontaneous conversation or speech. Blood sugars in the 300s primarily. ASSESSMENT: 1. Moderate to severe Alzheimer dementia. 2. Paroxysmal atrial fibrillation, stable on aspirin and Cardizem. 3. Insulin-dependent diabetes mellitus. 4. Hypertension. 5. Anemia of chronic disease. 6. Do not resuscitate level 1. PLAN: Will discharge home with hospice care. Hospital bed being set up this morning by hospice and her . The patient will be on Novolin 70/30 insulin at 46 units subcutaneous q.a.m., 26 units subcutaneous q.p.m. Continue aspirin daily and Cardizem CD 120 mg daily. Glucerna shakes with meals. cc: Prieto Rizzo MD
[2019-03-29] MEDS: LOTRISONE CREAM TOP SCH (11:35)
[2019-03-29 16:32] VITALS: BP 144/59
== END 2019-03-29 17:34 | disposition hospice, home (50) | DRG 640 ==
LOC: ED 23:03 → SUATTDRO 03-13 06:18 → 3N 03-13 06:18 → 3S 03-14 01:52 → 3N 03-23 06:37
PROVIDERS: ADMIT Family Medicine; ATTEND Family Medicine
CPT/HCPCS: 51701; 70450; 71010; 71045; 80048; 80053; 80162; 81001; 82550; 82805; 82948; 83605; 84134; 84439; 84443; 84484; 85025; 85027; 87040; 87324; 87449; 93005; 93010; 96360; 96361; 97162; 97530; 99285; A9270; C9113; J1160; J1650; J2543; J3370; J3480; J7030; P9612; S0164; XXXXX